=== PATIENT | male | born 1985 | race Caucasian/White ===

== ENCOUNTER 2024-07-12 14:46 | Observation (INO) | payer OTHER, SELFPAY ==
[2024-07-12] VITALS (9 sets, daily range): BP systolic 112–142; BP diastolic 73–98; PULSE 87–106; RESP 12–20; TEMP 36.4–37.8; O2SAT 94–97
--- NOTE | 2024-07-12 14:45 | DI.CT_ITS ---
Exam(s) CT ABDOMEN PELVIS W EXAM: CT ABDOMEN PELVIS W CLINICAL HISTORY: ?abscess. TECHNIQUE: Imaging Protocol: Axial computed tomography images with coronal and sagittal reformatted images were created and reviewed CONTRAST MATERIAL: Intravenous: Omnipaque-350 100cc Oral: None COMPARISON: No exams were available for comparison FINDINGS: VISUALIZED LUNG BASES: No nodules nor pleural effusions evident. ABDOMEN: There is no ascites. LIVER: Uppermost aspect of the right hepatic lobe is not included in the field of view. Apparently t his is not the area of clinical concern. There no discrete focal hepatic lesions. No dilated intrah epatic ducts. GALLBLADDER/BILIARY: No obvious gallbladder pathology. CBD is not dilated. PANCREAS: No evidence of pancreatic mass nor dilatation of the pancreatic duct. SPLEEN: There is mild splenomegaly. The cephalocaudal measurement of the spleen is 14.8 cm. There a re no splenic lesions. Splenic vein diameter is 12 mm which is slightly prominent. This vein is pat ent with no evidence of intraluminal thrombus. Portal vein confluence is also patent as is the main portal vein and intrahepatic portal veins. The superior mesenteric vein is also patent. ADRENALS: There are no significant adrenal masses. KIDNEYS:No cysts evident. No solid renal masses. No calculi nor hydronephrosis.. ABDOMINAL AORTA: Abdominal aorta is not enlarged. Retroaortic left renal vein is noted which is seen approximately 5 percent of the general population. This retroaortic left renal vein is not thrombos ed. LYMPH NODES:There is no retroperitoneal nor paraaortic adenopathy. ABDOMINAL WALL/GI: There is evidence of prior abdominal surgeries. Thinned anterior abdominal wall i n the midline noted most probably related to healed prior laparotomy. On the right side there is an anterior abdominal wall hernia located 10 cm lateral to the midline. This contains bowel loop. This is near an anastomosis level. There is no high-grade small bowel obstruction. On the left side there is inflammatory type skin thickening and subcutaneous streaking. Approximatel y 14 cm lateral left of center there is a fistulous tract from the skin through the abdominal wall to the wall of the sigmoid colon at this level. There is some smiled surrounding streaking. This may be related to a prior port site PELVIS: GI: Appendix appears unremarkable.There does not appear to be diverticular disease in the colon. LYMPH NODES: There is no intrapelvic nor inguinal adenopathy. REPRODUCTIVE: Prostate not enlarged. Seminal vesicles unremarkable. URINARY BLADDER: No calculi nor obvious masses evident OSSEOUS: No fractures and no significant osseous lesions. Sacroiliac joints appear unremarkable. No evidence of sacroiliitis. There is a benign-appearing scl erotic bone lesion in the right ischial tuberosity which is probably a benign bone island. IMPRESSION: 1. There is evidence of previous partial small bowel resection on the right side. Above this level t here is a right-sided abdominal wall hernia which contains non edematous appearing small bowel loops. However, there is mild prominence of small bowel loops on the right side measuring up to 3 cm. Col on is not collapsed. This may represent an element of incomplete small bowel obstruction on the righ t side due to this hernia. 2. On the left side there is an inflammatory process above the iliac crest level which extends from t he skin surface through the subcutaneous tissues an abdominal musculature with what appears to be a f istulous tract from the skin surface to the lateral wall of the sigmoid at this level. There is infl ammatory type stranding in the subcutaneous soft tissues and within the pelvis at this level. This m ay be related to a prior port site at this level. Alternatively inflammatory bowel disease with fist nash formation. There is no bowel obstruction at this level. There is no significant sigmoid diverti cular disease evident. There is abundant fecal material throughout the colon consistent with element of constipation. Given the above findings I suspect inflammatory bowel disease/Crohn's disease with prior surgeries. 3. The appendix appears unremarkable. Findings discussed by phone with ER physician 07/12/2024 5:50 p.m. RADIATION DOSE DELIVERED: 452.99mGy.cm Total DLP DATA REPOSITORY: All CT scans at this facility are submitted to the National Radiology Data Registry (NRDR) Dose Index Registry (DIR) with the [employer] (A[employer]). RADIATION OPTIMIZATION: All CT scans at this facility use at least one of these dose optimization te chniques: automated exposure control; mA and/or kV adjustment per patient size (includes targeted exa ms where dose is matched to clinical indication); or iterative reconstruction.
--- NOTE | 2024-07-12 15:05 | W.ED.GENAD ---
Discharge Plan Disposition Condition: Stable Discharge Details Chief Complaint: Abd Prob Clinical Impression: Left lower quadrant abdominal pain Primary Care Provider: None,None ED Provider: Shahab Howard Home Meds and New Rx's Prescriptions: No Action loperamide 2 MG capsule 2 mg PO PRN PRN mesalamine [Asacol] 400 MG tablet,delayed release (DR/EC) 400 mg PO TID acetaminophen-codeine 1 EACH tablet 1 ea PO Q4H PRN PRN (Reason: Pain) Qty: 30 0RF Rx Instructions: 1-2 po q 4 hrs prn pain HPI General Mode of arrival: ambulatory. Date/Time Provider Initiated Documentation: 07/12/24 14:58. Limitations to Documentation: no limitations. Information obtained by: patient. History of Present Illness 39 year old M presents to the emergency department with the chief complaint of left lower abdominal tenderness, described as moderate, Quality is described as sharp, and is localized to the abdomen. Patient reports no radiation. Patient started experiencing this day(s) (2) and it has been constant. No relieving factors improve symptom(s), No exacerbating factors reported . Patient notes fever/chills. Patient did receive the following treatments prior to arrival, none Related Data Home Medications ?Medication ?Instructions ?Recorded ?Confirmed acetaminophen 300 mg-codeine 30 mg 1 ea PO Q4H PRN PRN Pain ##30 09/09/13 tablet loperamide 2 mg capsule 2 mg PO PRN PRN 09/09/13 09/09/13 mesalamine 400 mg tablet,delayed 400 mg PO TID 09/09/13 09/09/13 release (Asacol) Previous Rx's ?Medication ?Instructions ?Recorded acetaminophen 300 mg-codeine 30 mg 1 ea PO Q4H PRN PRN Pain ##30 09/09/13 tablet Allergies Allergy/AdvReac Type Severity Reaction Status Date / Time No Known Allergies Allergy Unverified 07/12/24 14:58 General Stated Complaint: Abuse/Negl PADDY: 2 Review of Systems All systems reviewed & are unremarkable except as noted in HPI and below Constitutional Constitutional: Reports chills and Reports fever(s) Cardiovascular Cardiovascular: Denies chest pain and Denies dyspnea Respiratory Respiratory: Denies cough and Denies dyspnea Gastrointestinal Gastrointestinal: Reports abdominal pain and Denies vomiting Genitourinary Genitourinary: Denies dysuria Exam Const General: no acute distress Orientation: alert [facility] Head: normal to inspection Ears: external ears normal General nose exam: external nose normal Mouth: moist mucous membranes Eyes General: appearance normal, both eyes and all related structures Neck Neck: normal visual inspection Resp Effort & Inspection: normal respiratory effort and able to speak in complete sentences Cardio Rate: regular rate Neuro General: patient alert and patient oriented x3 Extrem General: normal to inspection Psych Mental Status: mental status grossly normal Course Vital Signs Vital signs: Vital Signs Temperature 37.8 C H 07/12/24 14:50 Pulse 105 H 07/12/24 14:50 Respiratory Rate 12 07/12/24 14:50 Blood Pressure 124/85 07/12/24 14:50 Pulse Oximetry 97 07/12/24 14:50 Temperature 37.8 C H 07/12/24 14:50 Temperature Source Temporal Artery Scan 07/12/24 14:50 Pulse 105 H 07/12/24 14:50 Respiratory Rate 12 07/12/24 14:50 Blood Pressure 124/85 07/12/24 14:50 Pulse Oximetry 97 07/12/24 14:50 Oxygen Delivery Method Room Air 07/12/24 14:50 Oxygen Flow Rate 0 07/12/24 14:50 Pain Level 8 07/12/24 14:50 Lab/Test Results Lab/Test Results: 07/12/24 14:59 Blood Blood Culture - Pending 07/12/24 14:59 Blood Blood Culture - Pending Medical Decision Making 39-year-old male with a history of Crohn's and prior abdominal surgeries related to this [facility] with 2 days of left lower abdominal pain and what he felt was a abscess of the lower abdominal wall. He also had fevers to 101. He denies any vomiting but has had some nausea. He is alert and oriented on arrival speaking clearly. He has multiple old surgical site areas of the abdomen and the area they think is infected is in the left lower quadrant where he feels like he has a hard cyst over a surgical site. There is 2 to 3 cm of mild erythema. [facility] Abdomen is soft but is tender in the left lower quadrant. Concern for intra-abdominal abscess, will obtain CBC, CMP, procalcitonin and CT abdomen pelvis to further evaluate. Patient stable, was difficult to get IV access so I placed an ultrasound-guided IV, patient advised the certified performance technologist that he had a reaction to CT contrast 10 years ago in [facility] where he got red and itchy all over. He is not able to provide any other details. He will be premedicated with IV Solu-Medrol as well as Benadryl. Patient will be signed out to oncoming provider pending CT results with disposition based on those results. Differential Diagnosis Differential Diagnosis: diverticulitis, intrabdominal abscess Lab Data Lab results reviewed: Yes I reviewed the patient's lab results. Quality:SDOH Health Related Social Needs: No Data to Display [facility] All Active Problems (Updated 07/12/24 @ 16:38 by Shahab Howard MD) Left lower quadrant abdominal pain (Acute) Social History Smoking/Tobacco Use Status: Current every day Smoking risk assessment performed?: Yes Drug use: Never
[2024-07-12 16:02] LABS: Abs Immature Grans 0.02 10^3/uL (0.0-0.06); Absolute Basophil Count 0.01 10^3/uL (0.0-0.2); Absolute Eosinophil Count 0.05 10^3/uL (0.0-0.7); Absolute Lymphocyte Count 0.44 10^3/uL (1.2-3.4); Absolute Monocyte Count 0.51 10^3/uL (0.1-0.8); Absolute Neutrophil Count 3.06 10^3/uL (1.2-6.7); Basophils % 0.2 %; Eosinophils % 1.2 %; HCT 37.5 % (40.0-50.0); HGB 12.2 g/dL (13.5-17.5); Immature Grans % 0.5 %; Lymphocytes % 10.8 %; MCH 26.8 pg (27.0-33.0); MCHC 32.5 % (32.0-36.0); MCV 82 fL (80-95); MPV 9.3 fL (8.0-11.0); Monocytes % 12.5 %; Neutrophils % 74.8 %; Platelet Count 201 10^3/uL (130-400); RBC 4.55 10^6/uL (4.36-5.78); RDW 14.1 % (11.8-14.1); RDW-SD 41.4 fL; WBC 4.09 10^3/uL (4.4-10.8)
[2024-07-12 16:04] LABS: ESR 19 mm/hr (0-15)
[2024-07-12] MEDS: Ketorolac 15 MG/ML VIAL IVP ×3 (16:13→23:38)
[2024-07-12] MEDS: Normal Saline 1,000 ML 1000 ML IV (16:13)
--- OUTSIDE RECORDS SUMMARY | 2024-07-12 16:18 | XMS_ITS | Data Portability ---
Author Organization [place] - [facility] Address [address] [place] [address] Assessment No assessment recorded. Plan of Treatment Reminders Order Date Submit Date Provider Last Modified By Organization Details Last Modified Time Details Appointments None recorded. Lab None recorded. Referral None recorded. Procedures None recorded. Surgeries None recorded. Imaging None recorded. Medication Orders Augmentin 875 mg-125 mg tablet 2023 [id number], [address], [place], [address], 15:30:29 Patient TargetsNo targets recorded. Patient Instructions Encounter Date Encounter Id Patient Instructions Last Modified By Organization Details Last Modified Time 03/31/2024 [id number] Unusual scenario , no clear entry point of infection, non petechial, bilateral, somewhat scattered and nodular and discrete, limited to sam area, pt looks nontoxic. Erythema nodosum could be a possibility, pt declines IM abx, rec course augmentin and go to ER if fevers or increased pain, pt states he is seeing his new physician for the first time tomorrow. [email or web address] Not available 03/31/2024 15:44:47 Reason for Referral None Reported. Medical Equipment None Reported. Allergies No known drug allergies Medications Name Sig Start Date Stop Date Status Note LastModified by Organization Details LastModified Time Augmentin 875 mg-125 mg tablet Take 1 tablet every 12 hours by oral route for 10 days. 024 active Not Available Not Available Not Avai lable dicyclomine 20 mg tablet Take 1 tablet twice a day by oral route. active Not Available Not Available No t Available gabapentin 300 mg capsule Take 1 capsule twice a day by oral route. active Not Available Not Available No t Available Suboxone active Not Available Not Avai lable Not Available Vitals Date Recorded Body height Body mass index (BMI) Body weight Body temperature Oxygen saturation Oxygen saturation in Arterial blood by Pulse oximetry Heart rate Respiratory rate Systolic blood pressure Diastolic blood pressure Provider Name and Address Organization Details Last Updated DateTime 4 187.96 cm 22.5 kg/m2 97168.6 6 g 97.3 [degF] 97 % 97 % 106 /min 20 /min 143 mm[Hg] 90 mm[Hg] Nava Wall [facility] 4 15:17:21 Social History None recorded. Functional Status None recorded. Mental Status None recorded. Family History Nothing Reported. Medical History No medical history recorded. Past Encounters Encounter ID Performer Location Encounter Start Date Encounter Closed Date Diagnosis/Indication Diagnosis SNOMED-CT Code Diagnosis ICD10 Code [id number] Saqib Hagan MD [address],[facility] [place] [address] 03/31/2024 15:05:55 03/31/2024 15:28:14 Cellulitis 936965550 L03.90 Health Concerns Section Related Observation LastModified by Organization Detai ls LastModified Time None Recorded Concern Status LastModified by Organization Details LastModified Time None Recorded Advance Directives Directive None Recorded Payers Encounter Date Sequence Insurance Name Policy Number Policy [place] Covered Member ID [place] Member ID Guarantor Name 03/31/2024 1 [facility] (MEDICAID) Avery Pulido [id number] Avery Pulido Notes Date Note Type Note Provider Name and Address Organization Details Recorded Time 03/31/2024 text/html HPI Notes: Pt has had rash on both legs for a few days, denies fever or chills, no injury, doesn't feel sick. MD [address], [place], [address], [facility]. 03/31/2024 15:45:18
--- OUTSIDE RECORDS SUMMARY | 2024-07-12 16:18 | XMS_ITS | Data Portability ---
Author Organization [place] [facility] [place] Address [address] [place] [address] Assessment Encounter Date Assessment Date Assessment LastModified by Organization Details LastModified Time 01/22/2022 01/22/2022 Telemedicine Information: This telmed (audio + visual) appointment provided a MAT prescription. Time Start: 1400; Time End:1415 Provider Location: home; Patient Location: office Telemedicine Consent Given (verbal): Jack LEWIS is a 36 y/o male with a history of OUD who presents today for their weekly MAT visit. Current prescription is: buprenorphine/nalo xone 16/4mg films BIO/PSYCH/SOCIAL HX: OUD: - MAT TX W/ BUP OR METHADONE X 16 YEARS WITH PERIODIC RELAPSE/ OPIOID USE - REPORTS MILD W/D SX STARTING AROUND 4PM ON CURRENT DOSE OF 16/4mg NICOTINE USE: - 1/2-1 PPD PSYCH: - D:X ADHD, RX: [facility]: - CROHNS DISEASE: STABLE, NO CURRENT RX OR GI SPECIALIST - PCP: DR CHRISTIANSEN - BLOODWORK: PER PT COMPLETED AT DOC 10/31 SOCIAL: - HOUSING: CURRENTLY STAYING W/ DAD IN [place] (WAS AT [facility]). 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 - TRANSPORTATION: RELIES ON [facility] - LEGAL: CURRENTLY ON [place]- PSYCHO- SOCIAL/ LEELEE UPDATE: - DENIES ILLICIT USE OVER THE LAST WEEK. - WILL INCREASE DOSE TO 18/4.5MG PA SHOULD BE COMPLETE - PT APPEARS STRESSED AT TODAY'S VISIT, PT REPORTS THIS IS B/C HE LOST HIS SPOT AT [employer] D/T NOT BEING ABLE TO PAY RENT. UN SURE IF THERE IS MORE TO THE STORY OR NOT, BUT PT IS CURRENTLY STAYING W/ HIS DAD IN [facility]. Lab Results Last UDS result (qualitative screen): 01/08/22POS buprenorphine and NO illicit drugs Last confirmatory test result (LCMS/quantitative ): N/A due to negative UDS Last buprenorphine confirmation test result: 01/08/22 Bup: 76.9 ng/ml & Norbup: 102.9 ng/ml ASSESSMENT: The patient's current phase of OUD treatment is : Stabilization phase. Interpretation of last buprenorphine confirmation test result : N/A (new to care) Medication dose : Considering dose adjustment, pt will remain at current dose at this time PLAN: OUD : Increase buprenorphine/nalo xone 18/4.5mg films daily. Continue weekly visits and UDS. 7d Rx provided today. Treatment plan review or change includes continue current level of care. Lab Orders : Confirmatory testing for illicit substances or absence of prescribed buprenorphine LFT will be repeated per our clinical protocol. Urine drug testing is ordered today with medical necessity as below. UNEXPECTED results on UDS may impact this patient's treatment plan. The following tests require confirmation via LCMS: Y POS for AMPHETAMINE Y POS for BENZODIAZEPINES Y POS for COCAINE Y POS for METHADONE Y POS for OPIATES W/FENTANYL Y POS for OXYCODONE NO POS FOR CANNAINOIDS. ADMITTED USE Additional lab(s) requested - if indicated, please order the following: Please repeat bup/NB on today's sample Prescription monitoring program is reviewed. If reviewed, I have identified agents prescribed to the patient in addition to any issued by our program; the patient is counseled regarding any risk of combining sedating agents. te for this level of care. [email or web address] Not available 01/22/2022 11:45:56 03/17/2024 03/17/2024 Telemedicine Information: This telmed (audio + visual) appointment provided a MAT prescription. Time Start: 145; Time End: 201 Provider Location: home; Patient Location: office Telemedicine Consent Given (verbal): Y Assessment/Plan This patient with a history of OUD presents today for Re-Initial visit. They are seeking treatment with Buprenorphine films/tabs The patient's current phase of treatment is induction phase. SUMMARY OF CURRENT SUBSTANCE USE: Patient released from corrections yesterday, was incarcerated since February 2022 Per patient, Sedrick Worthy was psych med provider at [facility], Rx methylphenidate appears on VPMS Patient presents with abnormal movements, fidgeting with his clothes, itching, and rearranging often He is pleasant and cooperative, engaged in visit Patient preference for suboxone vs subutex Paperwork from [facility] state maintenance dose of subutex was 24mg daily When has full dose of 24mg, he does well Was only sent Rx for 8mg dose this morning and he is starting to feel some withdrawal Patient is very pleased with transitional housing and states he's treated very well and the lady is very helpful MEDICAL : -- Current medical concerns: ADHD, OCD, depression, Crohn's (surgical history and previous colostomy bag) - Rx gabapentin, methylphenidate, dicyclomine -- PCP Name: dixie pt given information for [facility] for primary and psych care PSYCHO SOCIAL : -- Housing Stability/Safety: transitional housing through [facility] -- Family: no children -- Employment: unemployed -- Legal: furlough -- Counseling: none The patient does meet diagnostic criteria for opioid use disorder. MAT Medication Rx : Suboxone 24mg films daily Add'l Meds Prescribed : NONE MAT Rx Quantity : 7d Rx provided today. Visit Frequency : weekly visits and UDS. Initial lab studies ordered today include urine drug screen with confirmation (if requested/required ), HCG (female), CBC with differential, comprehensive metabolic panel, HAV, HBV, HCV, and HIV. Discussed ordered labs and rationale behind required labwork Education and counseling provided at today's Comprehensive Addiction Initial Assessment included (as appropriate for this patient): -- Education re: risks and benefits of MAT options (buprenorphine and naltrexone) as appropriate for this patient. -- If treating with buprenorphine, proper sublingual dosing technique reviewed: No smoking for 20 - 30 min before dose. Sip water prior to dosing. During buprenorphine dissolve, hold all saliva in mouth only until medication is fully dissolved. Patient may then swallow saliva or spit it out. Rinse mouth with water afterwards. Do not brush teeth for a full hour after dosing. --If treating with buprenorphine, discussed in-office induction vs home induction, depending on current drug of choice and quantity of use. --If treating with naltrexone, discussed length of abstinence before taking first dose. -- Reviewed program policies, visit frequency, and expectations regarding behavior. -- Reviewed and defined medication misuse and diversion, discussed that this behavior is against [facility] policy, and can result in discharge from the program. -- Discussed rationale and recommendation of psychotherapy to support recovery. Prescription monitoring program is reviewed. If applicable, this provider has identified agents prescribed to the patient in addition to any issued by our program. The patient has been counseled regarding any risk of combining sedating agents. [email or web address] Not available 03/17/2024 14:02:40 03/24/2024 03/24/2024 Telemedicine Information: This telmed (audio + visual) appointment provided a MAT prescription. Time Start: 1:35p; Time End:1:39p Provider Location: office; Patient Location: office ([facility]) Telemedicine Consent Given (verbal): Y This patient with a history of OUD presents today for their weekly MAT visit Current prescription is: buprenorphine/nalo xone 24mg films Patient denies any S/E, cravings, or withdrawal sx at current dose Update Since Last Visit : (narrative note) Patient Denies all illicit drug use since last visit Seen today in cross-coverage for [facility] In process of settling in after release from incarceration. Living in transitional housing and looking for a job, has interview later today for a [employer] position Upcoming appt 04/01/24 to establish care at [facility] for PCP OUD : feeling stable on current dose LAB RESULTS Last UDS result (qualitative screen): POS buprenorphine and NO illicit drugs Last confirmatory test result (LCMS/quantitative ): N/A due to negative UDS Last Bup confirmation was performed on N/A with the result: Bup: N/A ng/ml & Norbup: N/A ng/ml Last LFT result: not done ASSESSMENT The patient's current phase of OUD treatment is: Stabilization phase. Interpretation of last buprenorphine confirmation test result: N/A (new to care) Medication dose: No report of severe or persistent cravings/withdrawa l symptoms. Pt will remain at current dose PLAN (narrative, if applicable) Rx : Continue buprenorphine/nalo xone 24mg films daily Rx Quantity 7d Rx provided today. VISIT FREQUENCY Continue weekly visits and UDS. Treatment plan review or change includes continue current level of care LFTS will be repeated per our clinical protocol. Prescription monitoring program is reviewed. If applicable, I have identified agents prescribed to the patient in addition to any issued by our program. The patient has been counseled regarding any risk of combining sedating agents. [email or web address] Not available 03/24/2024 13:42:38 03/31/2024 03/31/2024 Telemedicine Information: This telmed (audio + visual) appointment provided a MAT prescription. Time Start: 2:29; Time End:234 Provider Location: office; Patient Location: office ([facility]) Telemedicine Consent Given (verbal): Y This patient with a history of OUD presents today for their weekly MAT visit Current prescription is: buprenorphine/nalo xone 24mg films Patient denies any S/E, cravings, or withdrawal sx at current dose Update Since Last Visit : (narrative note) Patient Denies all illicit drug use since last visit Seen today in [facility] for [facility] In process of settling in after release from incarceration. Living in transitional housing through [facility] and looking for a job, says it didn't work out with the [employer] job he applied for. Upcoming appt 04/01/24 to establish care at [facility] for PCP OUD : feeling stable on current dose LAB RESULTS Last UDS result (qualitative screen): POS buprenorphine and NO illicit drugs Last confirmatory test result (LCMS/quantitative ): N/A due to negative UDS Last Bup confirmation was performed on N/A with the result: Bup: N/A ng/ml & Norbup: N/A ng/ml Last LFT result: not done ASSESSMENT The patient's current phase of OUD treatment is: Stabilization phase. Interpretation of last buprenorphine confirmation test result: N/A (new to care) Medication dose: No report of severe or persistent cravings/withdrawa l symptoms. Pt will remain at current dose PLAN (narrative, if applicable) Rx : Continue buprenorphine/nalo xone 24mg films daily Rx Quantity 7d Rx provided today. VISIT FREQUENCY Continue weekly visits and UDS. Treatment plan review or change includes continue current level of care LFTS will be repeated per our clinical protocol. Prescription monitoring program is reviewed. If applicable, I have identified agents prescribed to the patient in addition to any issued by our program. The patient has been counseled regarding any risk of combining sedating agents. [email or web address] Not available 03/31/2024 14:36:25 04/07/2024 04/07/2024 Telemedicine Information: This telmed (audio + visual) appointment provided a MAT prescription. Time Start: 3:15; Time End:320 Provider Location: office; Patient Location: office ([facility]) Telemedicine Consent Given (verbal): Y This patient with a history of OUD presents today for their weekly MAT visit Current prescription is: buprenorphine/nalo xone 24mg films Patient denies any S/E, cravings, or withdrawal sx at current dose Update Since Last Visit : (narrative note) Patient Denies all illicit drug use since last visit Seen today in cross-coverage for [facility] In process of settling in after release from incarceration. Living in transitional housing through [facility] [employer] and looking for a job, says he continues to apply but hasn't found anything yet. First UDS did not read a temp. Second one did. OUD : feeling stable on current dose LAB RESULTS Last UDS result (qualitative screen): POS buprenorphine and NO illicit drugs Last confirmatory test result (LCMS/quantitative ): N/A due to negative UDS Last Bup confirmation was performed on N/A with the result: Bup: 113 ng/ml & Norbup: 294 ng/ml (03/31/2024) Last LFT result: not done ASSESSMENT The patient's current phase of OUD treatment is: Stabilization phase. Interpretation of last buprenorphine confirmation test result: No concern Medication dose: No report of severe or persistent cravings/withdrawa l symptoms. Pt will remain at current dose PLAN (narrative, if applicable) Rx : Continue buprenorphine/nalo xone 24mg films daily Rx Quantity 7d Rx provided today. VISIT FREQUENCY Continue weekly visits and UDS. Treatment plan review or change includes continue current level of care LFTS will be repeated per our clinical protocol. Prescription monitoring program is reviewed. If applicable, I have identified agents prescribed to the patient in addition to any issued by our program. The patient has been counseled regarding any risk of combining sedating agents. Not available 04/07/2024 15:29:01 Plan of Treatment Reminders Order Date Submit Date Provider Last Modified By Organization Details Last Modified Time Details Appointments None recorded. Lab drug screen, urine 2021 022 [facility], [address] [place], [id number], 12:35:18 drug screen, urine 2023 024 [facility], [address] [place], [id number], 4 12:51:27 additional order codes 2023 024 [facility], [address] [place], [id number], 4 14:01:00 additional order codes 2023 024 [facility], [address] [place], [address], 4 14:01:01 additional order codes 2023 024 [facility], [address] [place], [address], 4 14:01:06 additional order codes 2023 024 [facility], [address] [place], [address], 4 14:00:57 additional order codes 2023 024 [facility], [address] [place], [address], 4 14:01:04 additional order codes 2023 024 [facility], [address] [place], [address], 4 14:01:03 drug screen, urine 2023 024 [facility], [address] [place], [address], 4 12:51:08 additional order codes 2023 024 [facility], [address] [place], [address], 4 13:46:02 additional order codes 2023 024 [facility], [address] [place], [address], 4 13:46:08 [facility] codes [facility] [address] [place], [address], 4 13:46:06 additional order codes 2023 024 [facility] [address] [place], [address], 4 13:46:05 additional order codes 2023 024 [facility] [address] [place], [address], 4 13:46:10 additional order codes 2023 024 [facility] [address] [place], [address], 4 13:45:59 additional order codes 2023 [facility] [address] [place], [address], 4 13:46:03 buprenorphi ne, quantitativ e, urine 2023 024 [facility] [address] [place], [address], 4 05:30:46 drug screen, urine 2023 024 [facility] [address] [place], [address], 4 14:41:20 cannabinoid s, QL, screen, urine 2023 024 [facility], [address] [place], [address], 4 14:41:12 ethanol, QL, screen, urine 2023 024 [facility], [address] [place], [address], 4 14:40:57 additional order codes 2023 024 [facility], [address] [place], [address], 4 14:35:11 additional order codes 2023 024 [facility], [address] [place], [address], 4 14:35:05 additional order codes 2023 024 [facility], [address] [place], [address], 4 14:35:09 additional order codes 2023 024 [facility], [address] [place], [address], 4 14:35:21 additional order codes 2023 024 [facility], [address] [place], [address], 4 14:35:14 additional order codes 2023 024 [facility], [address] [place], [address], 4 14:35:18 additional order codes 2023 024 [facility], [address] [place], [address], 4 14:35:16 buprenorphi ne, quantitativ e, urine 2023 024 [facility], [address] [place], [address], 4 10:42:22 drug screen, urine 2023 024 [facility] [address] [place], [address], 4 13:49:55 cannabinoid s, QL, screen, urine 2023 024 [facility] [address] [place], [address], 4 13:50:43 ethanol, QL, screen, urine 2023 024 [facility] [address] [place], [address], 4 13:49:52 additional order codes 2023 024 [facility], [address] [place], [address], 4 15:28:27 additional order codes 2023 024 [facility], [address] [place], [address], 4 15:28:31 additional order codes 2023 024 [facility], [address] [place], [address], 4 15:28:38 additional order codes 2023 024 [facility], [address] [place], [address], 4 15:28:34 additional order codes 2023 024 [facility], [address] [place], [address], 4 15:28:26 additional order codes 2023 024 [facility], [address] [place], [address], 4 15:28:36 additional order codes 2023 024 [facility], [address] [place], [address], 4 15:28:32 buprenorphi ne, quantitativ e, urine 2023 [facility], [address] [place], [address], 4 09:29:56 Referral None recorded. Procedures None recorded. Surgeries None recorded. Imaging None recorded. Medication Orders Suboxone 8 mg-2 mg sublingual film 2021 022 [id number], [address] [facility], [facility] [address], [place], [id number], 4 19:24:09 buprenorphi ne 2 mg-naloxone 0.5 mg sublingual film 2021 022 [id number], [address] [facility], [facility] [address], [place], [id number], 4 19:24:06 Suboxone 12 mg-3 mg sublingual film 2023 024 [facility], [address] [place], [address], 4 14:01:38 Suboxone 12 mg-3 mg sublingual film 2023 024 [facility], [address] [place], [address], 4 13:46:10 Suboxone 12 mg-3 mg sublingual film 2023 024 [facility], [address] [place], [address], 4 14:35:38 Suboxone 12 mg-3 mg sublingual film 2023 024 [facility], [address] [place], [address], 4 15:28:47 Patient TargetsNo targets recorded. Patient Instructions Encounter Date Encounter Id Patient Instructions Last Modified By Organization Details Last Modified Time 01/22/2022 [id number] As part of your individualized treatment plan and program requirement, you will need to bring your correct prescription bottle and all used and unused medication and counseling verification to each appointment; > Agree to participate in counseling and bring counseling verification to each appointment; > Agree to present for random visits; > Agree to not falsify your urine specimens. [email or web address] Not available 01/21/2022 19:03:46 Education provid ed at today's visit included: Review of patient's individualized treatment plan; Review of program policies: RX, visit, counseling and DATA compliance; Review medication administration technique; Discussion proper care of medication/safety/ lock box; Counseling re: trigger avoidance, relapse prevention and the importance of developing a sober network; Counseling re safe sex and control; Review risk of BZD and BUP, as well as ETOH; Counseling re: Discovery & Drop out prevention in early recovery. [email or web address] Not available 01/21/2022 19:03:46 Reason for Referral None Reported. Results Created Date Observation Date Name Description Value Unit Range Abnormal Flag Note LastModifiedBy Organization Detail LastModifiedTime 12/25/19 22 12/25/2021 BUPRE NORPH INE PT SCREE HELEN amphetamines Negati ve NG/mL 1,000 Franchesca chavira by JOHNATHAN COLINDRES [place] Not Available [facility] [address] [place], [address], 12/26/2021 11:47:53 02/14/20 22 12/25/2021 BUPRE NORPH INE PT SCREE HELEN benzodiazapi patrica Negati ve NG/mL 200 Not Available [facility] [place], [address], 12/26/2021 11:47:53 12/25/19 22 12/25/2021 BUPRE NORPH INE PT SCREE HELEN buprenorphin e Positi ve NG/mL 5 Not Available [facility] [place], [address], 12/26/2021 11:47:53 12/25/19 22 12/25/2021 BUPRE NORPH INE PT SCREE HELEN cocaine metabolite Negati ve NG/mL 150 Not Available [facility] [place], [address], 12/26/2021 11:47:53 12/25/19 22 12/25/2021 BUPRE NORPH INE PT SCREE HELEN opiates Negati ve NG/mL 300 Not Available [facility] [place], [address], 12/26/2021 11:47:53 12/25/19 22 12/25/2021 BUPRE NORPH INE PT SCREE HELEN oxycodone Negati ve NG/mL 300 Not Available [facility], [address], 12/26/2021 11:47:53 12/25/19 22 12/25/2021 BUPRE NORPH INE PT SCREE HELEN fentanyl Negati ve NG/mL 2 Not Available [facility] [place], [address], 12/26/2021 11:47:53 12/25/19 22 12/25/2021 BUPRE NORPH INE PT SCREE HELEN ethyl alcohol Negati ve mg/dL 10 Not Available [facility] [place], [address], 12/26/2021 11:47:53 12/25/19 22 12/25/2021 BUPRE NORPH INE PT SCREE HELEN methadone metabolite Negati ve NG/mL 300 Not Available [place] [address] [address], [address], 12/26/2021 11:47:53 12/25/19 22 12/25/2021 BUPRE NORPH INE PT SCREE HELEN cannabinoids (THC) Positi ve NG/mL 50 abnormal Not Available [place] [address] [place], [address], 12/26/2021 11:47:53 12/25/19 22 12/25/2021 [facility]RE NORPH IN[facility] PT SCREE HELEN urine creatinine 126.9 mg/dL >20 Not Available [place] [address] [place], [address], 12/26/2021 11:47:53 12/25/19 22 12/25/2021 BUPRE NORPH INE PT SCREE HELEN urine pH 5.50 4.5-9. 0 Not Available [place] [address] [place], [address], 12/26/2021 11:47:53 12/25/19 22 12/25/2021 BUPRE NORPH INE PT SCREE HELEN specific gravity 1.022 1.003- 1.035 Not Available [place] [address] [place], [address], 12/26/2021 11:47:53 01/01/20 22 01/01/2022 BUPRE NORPH INE PT SCREE HELEN amphetamines Negati ve NG/mL 1,000 Franchesca chavira by JOHNATHAN COLINDRES ND Not Available [place] [address] [place], [address], 01/03/2022 14:28:39 01/01/20 22 01/01/2022 [facility]RE NORPH INE PT SCREE HELEN benzodiazapi patrica Negati ve NG/mL 200 Not Available [facility], [address], 01/03/2022 14:28:39 01/01/20 22 01/01/2022 BUPRE NORPH INE PT SCREE HELEN buprenorphin e Positi ve NG/mL 5 Not Available [facility], [address], 01/03/2022 14:28:39 01/01/20 22 01/01/2022 BUPRE NORPH INE PT SCREE HELEN cocaine metabolite Negati ve NG/mL 150 Not Available [facility], [address], 01/03/2022 14:28:39 01/01/20 22 01/01/2022 BUPRE NORPH INE PT SCREE HELEN opiates Negati ve NG/mL 300 Not Available [facility], [address], 01/03/2022 14:28:39 01/01/20 22 01/01/2022 BUPRE NORPH INE PT SCREE HELEN oxycodone Negati ve NG/mL 300 Not Available [facility], [address], 01/03/2022 14:28:39 01/01/20 22 01/01/2022 BUPRE NORPH INE PT SCREE HELEN fentanyl Negati ve NG/mL 2 Not Available [facility], [address], 01/03/2022 14:28:39 01/01/20 22 01/01/2022 BUPRE NORPH INE PT SCREE HELEN ethyl alcohol Negati ve mg/dL 10 Not Available [facility], [address], 01/03/2022 14:28:39 01/01/20 22 01/01/2022 BUPRE NORPH INE PT SCREE HELEN methadone metabolite Negati ve NG/mL 300 Not Available [facility] [address] [place], [address], 01/03/2022 14:28:39 01/01/20 22 01/01/2022 BUPRE NORPH INE PT SCREE HELEN cannabinoids (THC) Negati ve NG/mL 50 Not Available [facility] [address] [place] [address] [place], [address], 01/03/2022 14:28:39 01/01/20 22 01/01/2022 BUPRE NORPH INE PT SCREE HELEN urine creatinine 144.2 mg/dL >20 Not Available [place] [address] [place], [address], 01/03/2022 14:28:39 01/01/20 22 01/01/2022 BUPRE NORPH INE PT SCREE HELEN urine pH 6.50 4.5-9. 0 Not Available [place] [address] [place], [address], 01/03/2022 14:28:39 01/01/20 22 01/01/2022 BUPRE NORPH INE PT SCREE HELEN specific gravity 1.023 1.003- 1.035 Not Available [place] [address] [place], [address], 01/03/2022 14:28:39 01/01/20 22 01/01/2022 LOW LVL CUTOF F BUPRE NORPH INE PANEL , QN, U buprenorphin e 356.1 NG/mL 10 Elect heike john d by JOHNATHAN COLINDRES ND Not Available [place] [address] [place], [address], 01/05/2022 03:04:30 01/01/20 22 01/01/2022 LOW LVL CUTOF F BUPRE NORPH INE PANEL , QN, U norbuprenorp ang 477.9 NG/mL 10 Not Available [place] [address] [place], [address], 01/05/2022 03:04:30 01/01/20 22 01/01/2022 LOW LVL CUTOF F BUPRE NORPH INE PANEL , QN, U legend Abbrev iation s LOW - Detec aydee but unqua ntifi able OLR - Outsi de of linea r range ATR - Addit ional Testi ng Requi red Not Available [facility] [place], [address], 01/05/2022 03:04:30 01/01/20 22 01/01/2022 LOW LVL CUTOF F BUPRE NORPH INE PANEL , QN, U billing only (g0480) Billin g Only Not Available [facility] [place], [address], 01/05/2022 03:04:30 01/08/20 22 01/08/2022 BUPRE NORPH INE PT SCREE HELEN amphetamines Negati ve NG/mL 1,000 Elect heike john d by JOHNATHAN COLINDRES ND Not Available [place] [address] [place], [address], 01/10/2022 14:50:41 01/08/20 22 01/08/2022 BUPRE NORPH INE PT SCREE HELEN benzodiazapi patrica Negati ve NG/mL 200 Not Available [facility], [address], 01/10/2022 14:50:41 01/08/20 22 01/08/2022 BUPRE NORPH INE PT SCREE HELEN buprenorphin e Positi ve NG/mL 5 Not Available [facility], [address], 01/10/2022 14:50:41 01/08/20 22 01/08/2022 BUPRE NORPH INE PT SCREE HELEN cocaine metabolite Negati ve NG/mL 150 Not Available [facility], [address], 01/10/2022 14:50:41 01/08/20 22 01/08/2022 BUPRE NORPH INE PT SCREE HELEN opiates Negati ve NG/mL 300 Not Available [facility], [address], 01/10/2022 14:50:41 01/08/20 22 01/08/2022 BUPRE NORPH INE PT SCREE HELEN oxycodone Negati ve NG/mL 300 Not Available [facility], [address], 01/10/2022 14:50:41 01/08/20 22 01/08/2022 BUPRE NORPH INE PT SCREE HELEN fentanyl Negati ve NG/mL 2 Not Available [facility], [address], 01/10/2022 14:50:41 01/08/20 22 01/08/2022 BUPRE NORPH INE PT SCREE HELEN ethyl alcohol Negati ve mg/dL 10 Not Available [facility], [address], 01/10/2022 14:50:41 01/08/20 22 01/08/2022 BUPRE NORPH INE PT SCREE HELEN methadone metabolite Negati ve NG/mL 300 Not Available [facility], [address], 01/10/2022 14:50:41 01/08/20 22 01/08/2022 BUPRE NORPH INE PT SCREE HELEN cannabinoids (THC) Negati ve NG/mL 50 Not Available [facility], [address], 01/10/2022 14:50:41 01/08/20 22 01/08/2022 BUPRE NORPH INE PT SCREE HELEN urine creatinine 67.2 mg/dL >20 Not Available [place] [address] [place], [address], 01/10/2022 14:50:41 01/08/20 22 01/08/2022 BUPRE NORPH INE PT SCREE HELEN urine pH 7.40 4.5-9. 0 Not Available [place] [address] [place], [address], 01/10/2022 14:50:41 01/08/20 22 01/08/2022 BUPRE NORPH INE PT SCREE HELEN specific gravity 1.014 1.003- 1.035 Not Available [place] [address] [place], [address], 01/10/2022 14:50:41 01/08/20 22 01/08/2022 PRESC RIBED DRUG CONFI RMATI ON BUPRE NORPH INE 1, QN, U buprenorphin e 76.9 NG/mL 10 Elect heike john d by JOHNATHAN COLINDRES ND Not Available [place] [address] [place], [address], 01/11/2022 13:46:44 01/08/20 22 01/08/2022 PRESC RIBED DRUG CONFI RMATI ON BUPRE NORPH INE 1, QN, U norbuprenorp ang 102.9 NG/mL 10 Not Available [place] [address] [place], [address], 01/11/2022 13:46:44 01/08/20 22 01/08/2022 PRESC RIBED DRUG CONFI RMATI ON BUPRE NORPH INE 1, QN, U legend Abbrev iation s LOW - Detec aydee but unqua ntifi able OLR - Outsi de of linea r range ATR - Addit ional Testi ng Requi red Not Available [place] [address] [place], [address], 01/11/2022 13:46:44 01/08/20 01/08/2022 PRESC RIBED DRUG CONFI RMATI ON BUPRE NORPH INE 1, QN, U billing only ([id number]) Billin g Only Not Available [facility], [address], 01/11/2022 13:46:44 01/23/20 22 01/22/2022 BUPRE NORPH INE PT SCREE HELEN amphetamines Negati ve NG/mL 1,000 Elect heike john d by JOHNATHAN COLINDRES ND Not Available [place] [address] [place], [address], 01/23/2022 12:35:18 01/23/20 22 01/22/2022 BUPRE NORPH INE PT SCREE HELEN benzodiazapi patrica Negati ve NG/mL 200 Not Available [facility] [place], [address], 01/23/2022 12:35:18 01/23/20 22 01/22/2022 BUPRE NORPH INE PT SCREE HELEN buprenorphin e Positi ve NG/mL 5 Not Available [facility], [address], 01/23/2022 12:35:18 01/23/20 22 01/22/2022 BUPRE NORPH INE PT SCREE HELEN cocaine metabolite Positi ve NG/mL 150 abnormal Not Available [facility] [place], [address], 01/23/2022 12:35:18 01/23/20 22 01/22/2022 BUPRE NORPH INE PT SCREE HELEN opiates Negati ve NG/mL 300 Not Available [facility], [address], 01/23/2022 12:35:18 01/23/20 22 01/22/2022 BUPRE NORPH INE PT SCREE HELEN oxycodone Negati ve NG/mL 300 Not Available [facility], [address], 01/23/2022 12:35:18 01/23/20 22 01/22/2022 BUPRE NORPH INE PT SCREE HELEN fentanyl Negati ve NG/mL 2 Not Available [facility], [address], 01/23/2022 12:35:18 01/23/20 22 01/22/2022 BUPRE NORPH INE PT SCREE HELEN ethyl alcohol Negati ve mg/dL 10 Not Available [facility], [address], 01/23/2022 12:35:18 01/23/20 22 01/22/2022 BUPRE NORPH INE PT SCREE HELEN methadone metabolite Negati ve NG/mL 300 Not Available [facility], [address], 01/23/2022 12:35:18 01/23/20 22 01/22/2022 BUPRE NORPH INE PT SCREE HELEN cannabinoids (THC) Negati ve NG/mL 50 Not Available [facility], [address], 01/23/2022 12:35:18 01/23/20 22 01/22/2022 BUPRE NORPH INE PT SCREE HELEN urine creatinine 233.8 mg/dL >20 Not Available [place] [address] [place], [address], 01/23/2022 12:35:18 01/23/20 22 01/22/2022 BUPRE NORPH INE PT SCREE HELEN urine pH 7.70 4.5-9. 0 Not Available [place] [address] [place], [address], 01/23/2022 12:35:18 01/23/20 22 01/22/2022 BUPRE NORPH INE PT SCREE HELEN specific gravity 1.015 1.003- 1.035 Not Available [place] [address] [place], [address], 01/23/2022 12:35:18 01/23/20 22 01/22/2022 COCAI NE, QN, U benzoylecgon ine 294.5 NG/mL 100 high Elect heike john d by JOHNATHAN COLINDRES ND Not Available [place] [address] [place], [address], 01/26/2022 12:42:40 01/23/20 22 01/22/2022 COCAI NE, QN, U legend Abbrev iation s OLR - Outsi de of linea r range Not Available [place] [address] [place], [address], 01/26/2022 12:42:40 01/23/20 22 01/22/2022 COCAI NE, QN, U billing only ([id number]) Billin g Only Not Available [facility] [address] [place], [address], 01/26/2022 12:42:40 03/17/20 24 03/18/2024 INITI AL PT UDS, QL, U cocaine metabolite NEG NG/mL <300 normal Not Available [facility] [address] [place], [address], 03/18/2024 12:51:27 03/17/20 24 03/18/2024 INITI AL PT UDS, QL, U amphetamines NEG NG/mL <500 normal Not Available [facility] [address] [place], [address], 03/18/2024 12:51:27 03/17/20 24 03/18/2024 INITI AL PT UDS, QL, U benzodiazepi patrica NEG NG/mL <200 normal Not Available [facility] [address] [place], [address], 03/18/2024 12:51:27 03/17/20 24 03/18/2024 INITI AL PT UDS, QL, U buprenorphin e POS NG/mL <5 normal Not Available [facility] [address] [place], [address], 03/18/2024 12:51:27 03/17/20 24 03/18/2024 INITI AL PT UDS, QL, U fentanyl NEG NG/mL <10 normal Not Available [facility] [address] [place], [address], 03/18/2024 12:51:27 03/17/20 24 03/18/2024 INITI AL PT UDS, QL, U methadone NEG NG/mL <300 normal Not Available [facility] [address] [place], [address], 03/18/2024 12:51:27 03/17/20 24 03/18/2024 INITI AL PT UDS, QL, U opiates NEG NG/mL <300 normal Not Available [facility] [address] [place], [address], 03/18/2024 12:51:27 03/17/20 24 03/18/2024 INITI AL PT UDS, QL, U oxycodone NEG NG/mL <300 normal Not Available [facility] [address] [place], [address], 03/18/2024 12:51:27 03/17/20 24 03/18/2024 INITI AL PT UDS, QL, U urine pH 7.9 4.5 - 9.0 Not Available [facility] [address] [place], [address], 03/18/2024 12:51:27 03/17/20 24 03/18/2024 INITI AL PT UDS, QL, U urine specific gravity 1.013 1.003 - 1.035 Not Available [facility] [address] [place], [address], 03/18/2024 12:51:27 03/17/20 24 03/18/2024 INITI AL PT UDS, QL, U urine creatinine 133 mg/dL 20 - 320 Not Available [facility] [address] [place], [address], 03/18/2024 12:51:27 03/24/20 24 03/25/2024 BUPRE NORPH INE PT UDS, QL, U cocaine metabolite NEG NG/mL <300 normal Not Available [facility] 12 [place], [address], 03/25/2024 12:51:08 03/24/20 24 03/25/2024 BUPRE NORPH INE PT UDS, QL, U amphetamines NEG NG/mL <500 normal Not Available [facility] [address] [place], [address], 03/25/2024 12:51:08 03/24/20 24 03/25/2024 BUPRE NORPH INE PT UDS, QL, U benzodiazepi patrica NEG NG/mL <200 normal Not Available [facility] [address] [place], [address], 03/25/2024 12:51:08 03/24/20 24 03/25/2024 BUPRE NORPH INE PT UDS, QL, U buprenorphin e POS NG/mL <5 normal Not Available [facility] [address] [place], [address], 03/25/2024 12:51:08 03/24/20 24 03/25/2024 BUPRE NORPH INE PT UDS, QL, U fentanyl NEG NG/mL <10 normal Not Available [facility] [address] [place], [address], 03/25/2024 12:51:08 03/24/20 24 03/25/2024 BUPRE NORPH INE PT UDS, QL, U methadone NEG NG/mL <300 normal Not Available [facility] [address] [place], [address], 03/25/2024 12:51:08 03/24/20 24 03/25/2024 BUPRE NORPH INE PT UDS, QL, U opiates NEG NG/mL <300 normal Not Available [facility] 12 [place], [address], 03/25/2024 12:51:08 03/24/20 24 03/25/2024 BUPRE NORPH INE PT UDS, QL, U oxycodone NEG NG/mL <300 normal Not Available [facility] [address] [place], [address], 03/25/2024 12:51:08 03/24/20 24 03/25/2024 BUPRE NORPH INE PT UDS, QL, U urine pH 6.5 4.5 - 9.0 Not Available [facility] [address] [place], [address], 03/25/2024 12:51:08 03/24/20 24 03/25/2024 BUPRE NORPH INE PT UDS, QL, U urine specific gravity 1.018 1.003 - 1.035 Not Available [facility] [address] [place], [address], 03/25/2024 12:51:08 03/24/20 24 03/25/2024 BUPRE NORPH INE PT UDS, QL, U urine creatinine 92 mg/dL 20 - 320 Not Available [facility] [address] [place], [address], 03/25/2024 12:51:08 03/24/20 24 2024 BUPRE NORPH INE, QN, U normalized buprenorphin e 357.2 NG/mL Not Available [facility] [address] [place], [address], 2024 05:30:46 03/24/20 24 2024 BUPRE NORPH INE, QN, U normalized norbuprenorp ang 1039.2 NG/mL Not Available [facility] [address] [place], [address], 2024 05:30:46 03/24/20 24 2024 BUPRE NORPH INE, QN, U buprenorphin e 327.5 NG/mL <10.0 normal Not Available [facility] 12 [place], [address], 2024 05:30:46 03/24/20 24 2024 BUPRE NORPH INE, QN, U norbuprenorp ang 952.9 NG/mL <20.0 normal Not Available [facility] [address] [place], [address], 2024 05:30:46 03/31/20 24 04/01/2024 AC OL, QL, U ethanol NEG mg/dL <10 normal Not Available [facility] [address] [place], [address], 04/01/2024 14:40:57 03/31/20 24 04/01/2024 CANNA BINOI DS, QL, U cannabinoids POS NG/mL <50 abnormal Not Available [facility] 12 [place], [address], 04/01/2024 14:41:11 03/31/20 24 04/01/2024 BUPRE NORPH INE PT UDS, QL, U cocaine metabolite NEG NG/mL <300 normal Not Available [facility] 12 [place], [address], 04/01/2024 14:41:20 03/31/20 24 04/01/2024 BUPRE NORPH INE PT UDS, QL, U amphetamines NEG NG/mL <500 normal Not Available [facility] [address] [place], [address], 04/01/2024 14:41:20 03/31/20 24 04/01/2024 BUPRE NORPH INE PT UDS, QL, U benzodiazepi patrica NEG NG/mL <200 normal Not Available [facility] [address] [place], [address], 04/01/2024 14:41:20 03/31/20 24 04/01/2024 BUPRE NORPH INE PT UDS, QL, U buprenorphin e POS NG/mL <5 normal Not Available [facility] 12 [place], [address], 04/01/2024 14:41:20 03/31/20 24 04/01/2024 BUPRE NORPH INE PT UDS, QL, U fentanyl NEG NG/mL <10 normal Not Available [facility] [address] [place], [address], 04/01/2024 14:41:20 03/31/20 24 04/01/2024 BUPRE NORPH INE PT UDS, QL, U methadone NEG NG/mL <300 normal Not Available [facility] 12 [place], [address], 04/01/2024 14:41:20 03/31/20 24 04/01/2024 BUPRE NORPH INE PT UDS, QL, U opiates NEG NG/mL <300 normal Not Available [facility] [address] [place], [address], 04/01/2024 14:41:20 03/31/20 24 04/01/2024 BUPRE NORPH INE PT UDS, QL, U oxycodone NEG NG/mL <300 normal Not Available [facility] [address] [place], [address], 04/01/2024 14:41:20 03/31/20 24 04/01/2024 BUPRE NORPH INE PT UDS, QL, U urine pH 6.4 4.5 - 9.0 Not Available [facility] 12 [place], [address], 04/01/2024 14:41:20 03/31/20 24 04/01/2024 BUPRE NORPH INE PT UDS, QL, U urine specific gravity 1.016 1.003 - 1.035 Not Available [facility] [address] [place], [address], 04/01/2024 14:41:20 03/31/20 24 04/01/2024 BUPRE NORPH INE PT UDS, QL, U urine creatinine 104 mg/dL 20 - 320 Not Available [facility] [address] [place], [address], 04/01/2024 14:41:20 03/31/20 24 04/02/2024 BUPRE NORPH INE, QN, U normalized buprenorphin e 113.2 NG/mL Not Available [facility] [address] [place], [address], 04/02/2024 10:42:22 03/31/20 24 04/02/2024 BUPRE NORPH INE, QN, U normalized norbuprenorp ang 294.4 NG/mL Not Available [facility] [address] [place], [address], 04/02/2024 10:42:22 03/31/20 24 04/02/2024 BUPRE NORPH INE, QN, U buprenorphin e 117.8 NG/mL <10.0 normal Not Available [facility] [address] [place], [address], 04/02/2024 10:42:22 03/31/20 24 04/02/2024 BUPRE NORPH INE, QN, U norbuprenorp ang 306.4 NG/mL <20.0 normal Not Available [facility] [address] [place], [address], 04/02/2024 10:42:22 04/07/20 24 04/09/2024 AC OL, QL, U ethanol NEG mg/dL <10 normal Not Available [facility] [address] [place], [address], 04/09/2024 13:49:52 04/07/20 24 04/09/2024 BUPRE NORPH INE PT UDS, QL, U cocaine metabolite NEG NG/mL <300 normal Not Available [facility] [address] [place], [address], 04/09/2024 13:49:55 04/07/20 24 04/09/2024 BUPRE NORPH INE PT UDS, QL, U amphetamines NEG NG/mL <500 normal Not Available [facility] [address] [place], [address], 04/09/2024 13:49:55 04/07/20 24 04/09/2024 BUPRE NORPH INE PT UDS, QL, U benzodiazepi patrica NEG NG/mL <200 normal Not Available [facility] 12 [place], [address], 04/09/2024 13:49:55 04/07/20 24 04/09/2024 BUPRE NORPH INE PT UDS, QL, U buprenorphin e POS NG/mL <5 normal Not Available [facility] [address] [place], [address], 04/09/2024 13:49:55 04/07/20 24 04/09/2024 BUPRE NORPH INE PT UDS, QL, U fentanyl NEG NG/mL <10 normal Not Available [facility] [address] [place], [address], 04/09/2024 13:49:55 04/07/20 24 04/09/2024 BUPRE NORPH INE PT UDS, QL, U methadone NEG NG/mL <300 normal Not Available [facility] 12 [place], [address], 04/09/2024 13:49:55 04/07/20 24 04/09/2024 BUPRE NORPH INE PT UDS, QL, U opiates NEG NG/mL <300 normal Not Available [facility] [address] [place], [address], 04/09/2024 13:49:55 04/07/20 24 04/09/2024 BUPRE NORPH INE PT UDS, QL, U oxycodone NEG NG/mL <300 normal Not Available [facility] [address] [place], [address], 04/09/2024 13:49:55 04/07/20 24 04/09/2024 BUPRE NORPH INE PT UDS, QL, U urine pH 7.1 4.5 - 9.0 Not Available [facility] [address] [place], [address], 04/09/2024 13:49:55 04/07/20 24 04/09/2024 BUPRE NORPH INE PT UDS, QL, U urine specific gravity 1.024 1.003 - 1.035 Not Available [facility] [address] [place], [address], 04/09/2024 13:49:55 04/07/20 24 04/09/2024 BUPRE NORPH INE PT UDS, QL, U urine creatinine 127 mg/dL 20 - 320 Not Available [facility] [address] [place], [address], 04/09/2024 13:49:55 04/07/20 24 04/09/2024 CANNA BINOI DS, QL, U cannabinoids POS NG/mL <50 abnormal Not Available [facility] 12 [place], [address], 04/09/2024 13:50:43 04/07/20 24 04/10/2024 BUPRE NORPH INE, QN, U normalized buprenorphin e 186.5 NG/mL Not Available [facility] [address] [place], [address], 04/10/2024 09:29:56 04/07/20 24 04/10/2024 BUPRE NORPH INE, QN, U normalized norbuprenorp ang 363.9 NG/mL Not Available [facility] [address] [place], [address], 04/10/2024 09:29:56 04/07/20 24 04/10/2024 BUPRE NORPH INE, QN, U buprenorphin e 237.6 NG/mL <10.0 normal Not Available [facility] [address] [place], [address], 04/10/2024 09:29:56 04/07/20 24 04/10/2024 BUPRE NORPH INE, QN, U norbuprenorp ang 463.6 NG/mL <20.0 normal Not Available [facility] [address] [place], [address], 04/10/2024 09:29:56 Result Notes None recorded. Problems Name Problem SNOMED Code Status Onset Date Resolution Date Notes Provider Name and Address Organization Details Recorded Time Crohn's disease 61378315 Active 2023 Karina Patel RN [address] [place], [place] [address], [address], [facility] [place] 4 15:42:05 Attention deficit hyperactivity disorder 361946112 Active 2023 Karina Patel RN [address] [facility] [place], [address], [facility] [place] 4 15:42:15 Obsessive-comp ulsive disorder 951452406 Active 2023 Sayra Ruvalcaba NP [address] [facility] [place], [address], [facility] [place] 4 13:55:40 Chronic depression 185403735 Active 2023 Sayra Ruvalcaba, IRVIN [address] [place] [address], [place], [address], [facility] 4 13:55:50 Opioid dependence 00267466 Active 2021 Palak Hinson NP [address] [facility] [place], [address], [facility] 2 13:27:59 Nicotine dependence 25479021 Active 2021 Palak Hinson NP [address] [facility] [place], [address], [facility] 2 13:28:25 Cocaine dependence 30069556 Active 2021 Palak Hinson NP [address] [facility] [place], [address], [facility] 13:28:41 Problem Notes None recorded. Procedures Surgical History Date Name Laterality Status Provider Name and Address Organization Details Recorded Time 04/14/2024 28172, G0480, G0481 cancelled Karina Patel RN [address] [place] [address], [phone], [facility] 04/13/2024 08:42:32 04/07/2024 16104, G0480, G0481 completed Karina Patel RN [address] [place] [address], [address], [facility] 04/02/2024 09:16:22 03/31/2024 68747, G0480, G0481 completed Karina Patel RN [address] [place] [address], [address], [facility] 03/30/2024 08:28:30 03/24/2024 28398, G0480, G0481 completed Karina Patel RN [address] [place] [address], [phone], [facility] 03/23/2024 09:04:08 03/17/2024 79357, G0480, G0481 completed Karina Patel RN [address] [place] [address], [address], [facility] 03/16/2024 08:02:59 01/22/2022 86277, G0480, G0481 completed Plaak Sravan, [employer] [address] [place], [address], [facility] 01/21/2022 19:03:46 01/15/2022 23920, G0480, G0481 completed Palak Sravan, [employer]AMP[employer] OFFICER [address] [place], [address], [facility] 01/15/2022 13:55:15 01/08/2022 99090, G0480, G0481 completed Palak Sravan, [employer]AMP[employer] OFFICER [address] [place], [address], [facility] 01/08/2022 12:02:10 01/01/2022 10116, G0480, G0481 completed Palak Sravan, [employer]AMP[employer] OFFICER [address] [place], [address], [facility] 01/01/2022 10:42:09 12/25/2021 24710, G0480, G0481 completed [address] null, [facility] 12/25/2021 12:47:14 12/18/2021 35330, G0480, G0481 completed [address] null, [facility] 12/18/2021 13:50:17 12/11/2021 99937, G0480, G0481 completed Leslie Hernandes null, [facility] 12/11/2021 10:23:57 Imaging Results None recorded. Procedure Notes None recorded. Medical Equipment None Reported. Allergies No known drug allergies Medications Name Sig Start Date Stop Date Status Note LastModified by Organization Details LastModified Time bupropion HCl SR 150 mg tablet,12 hr sustained- release TAKE 1 TABLET BY MOUTH DAILY FOR 3 DAYS. THEN INCREASE TO TAKE 1 TABLET BY MOUTH 2 TIMES DAILY 03/17 completed Not Available Not Available Not Available clonidine HCl 0.1 mg tablet 03/17 completed Not Available Not Available Not Available amoxicilli n 500 mg tablet TAKE 2 TABLETS BY MOUTH STAT THEN 1 TABLET THREE TIMES DAILY 03/17 completed Not Available Not Available Not Available nicotine (polacrile x) 4 mg gum 03/17 completed Not Available Not Available Not Available dicyclomin e 20 mg tablet TAKE 2 TABLETS BY MOUTH TWICE DAILY active Not Available Not Available No t Available gabapentin 300 mg capsule TAKE 1 CAPSULE BY MOUTH THREE TIMES DAILY 03/17 completed Not Available Not Available Not Available hydroxyzin e HCl 25 mg tablet 03/17 completed Not Available Not Available Not Available gabapentin 100 mg capsule Take 1 capsule twice a day by oral route. active Not Available Not Available No t Available nicotine 7 mg/24 hr daily transderma l patch 03/17 completed Not Available Not Available Not Available atomoxetin e 40 mg capsule 03/17 completed Not Available Not Available Not Available bupropion HCl XL 300 mg 24 hr tablet, extended release TAKE ONE TABLET BY MOUTH EVERY DAY 03/17 completed Not Available Not Available Not Available methylphen idate LA 20 mg biphasic 50-50 capsule,ex tended release TAKE 1 CAPSULE BY MOUTH EVERY MORNING 03/17 completed Not Available Not Available Not Available methylphen idate LA 40 mg biphasic 50-50 capsule,ex tended release TAKE 1 CAPSULE BY MOUTH IN THE MORNING 03/17 completed Not Available Not Available Not Available Focalin XR 10 mg capsule,ex tended release TAKE ONE CAPSULE BY MOUTH TWICE A DAY 03/17 completed Not Available Not Available Not Available Ritalin 40 mg in the morning and 20mg in afternoon active Total dose of 60mg daily Not Available Not Available Not Available Focalin XR 30 mg capsule,ex tended release TAKE ONE CAPSULE BY MOUTH EVERY MORNING 03/17 completed Not Available Not Available Not Available Suboxone 8 mg-[address] FILMS UNDER THE TONGUE ONCE DAILY 03/23 completed Not Available Not Available Not Available Suboxone 2 mg-0.[address] 1 film every day by sublingua l route. 03/23 completed Not Available Not Available Not Available Suboxone 12 mg-[address] 2 films every day by sublingua l route for 7 days. 2023 active Not Available Not Available Not Avai lable Vitals Date Recorded Body weight Body temperature Oxygen saturation Oxygen saturation in Arterial blood by Pulse oximetry Heart rate Systolic blood pressure Diastolic blood pressure Provider Name and Address Organization Details Last Updated DateTime 2 80916.8 5 g 96.2 [degF] 97 % 97 % 123 /min 140 mm[Hg] 80 mm[Hg] Sherie Gonzales [place] [facility] 2 11:24:21 Date Recorded Body temperature Heart rate Oxygen saturation Oxygen saturation in Arterial blood by Pulse oximetry Body weight Systolic blood pressure Diastolic blood pressure Provider Name and Address Organization Details Last Updated DateTime 4 98.1 [degF] 103 /min 98 % 98 % 88361.4 g 136 mm[Hg] 84 mm[Hg] [facility] 4 13:38:35 Date Recorded Body temperature Oxygen saturation Oxygen saturation in Arterial blood by Pulse oximetry Heart rate Systolic blood pressure Diastolic blood pressure Provider Name and Address Organization Details Last Updated DateTime 4 97.5 [degF] 98 % 98 % 115 /min 135 mm[Hg] 84 mm[Hg] [facility] 4 13:29:25 Date Recorded Body temperature Oxygen saturation Oxygen saturation in Arterial blood by Pulse oximetry Heart rate Systolic blood pressure Diastolic blood pressure Provider Name and Address Organization Details Last Updated DateTime 4 97.4 [degF] 98 % 98 % 112 /min 140 mm[Hg] 80 mm[Hg] [facility] 4 14:03:18 Date Recorded Body temperature Oxygen saturation Oxygen saturation in Arterial blood by Pulse oximetry Heart rate Systolic blood pressure Diastolic blood pressure Provider Name and Address Organization Details Last Updated DateTime 4 97.3 [degF] 97 % 97 % 108 /min 144 mm[Hg] 90 mm[Hg] Kelly Schmid [place] [facility] 4 15:02:37 Social History Question Answer Notes LastModified by Organization Details LastModified Time Tobacco Smoking Status Current Every Day Smoker Karina Patel RN [address] [place] [address], [phone], [facility] 03/17/2024 13:29:20 What Is Your Level Of Alcohol Consumption? None Information not available 03/17/2024 Are You Blind Or Do You Have Difficulty Seeing? No Information not available 03/17/2024 Are You Currently Employed? No Information not available 03/17/2024 Are You Deaf Or Do You Have Serious Difficulty Hearing? No Information not available 03/17/2024 Where Do You Live? Other Corrections Housing Information not available 03/17/2024 *Housing Stable - Safe 03/17/24: [address] (1 Minute Walk From The Office) Information not available 03/17/2024 *Employment Underemployed Looking For Employement Once Meds Get straightened Out Information not available 03/17/2024 *Food Inadequate 03/17/24: [facility] Sent Application To Marc To Provide To Pt In-person Information not available 03/17/2024 *[place] Not A [place] Information not available 03/17/2024 *Job Training/Educa tion/Literacy Patient Declined Information not available 03/17/2024 *Legal Status Probation/Parol e 03/17/24 Luz Marina. SUPERVISING OFFICER MOISÉS ARGUETA SUPERVISING OFFICE [facility] Probation And [place] Information not available 03/17/2024 *Legal Assistance Not Required Information not available 03/17/2024 *Custody Of Dependent Children N/A No Kids. Information not available 03/17/2024 *Social Service's Involvement With Dependent Children Not Applicable Information not available 03/17/2024 *Childcare Needed No Information not available 03/17/2024 *Concern For Domestic Violence No Information not available 03/17/2024 *Primary Care Provider No Providing [facility] Int Med Info For PCP And Pysch Med Information not available 03/17/2024 *Transportatio n Issues No 03/17/24: Can Walk To The Office And Has Someone Available Through His Housing That Assists With Transportation And Is Aware Of [facility] Resources. Information not available 03/17/2024 What Is Your Relationship Status? Unknown Information not available 03/17/2024 At What Age Did You Start Smoking Tobacco? 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 Information not available 03/17/2024 How Much Tobacco Do You Smoke? 0.5 PPD Information not available 03/17/2024 Do You Feel Stressed (tense, Restless, Nervous, Or Anxious, Or Unable To Sleep At Night)? [id number] Information not available 03/17/2024 Do You Use Any Illicit Or Recreational Drugs? No Last Use At Least 2 Years. Reports History Of MJ And Cocaine Use Information not available 03/17/2024 Do You Or Have You Ever Used Any Other Forms Of Tobacco Or Nicotine? No Information not available 03/17/2024 Sex: Male Functional Status Question Answer Note LastModified by Organizat ion Details LastModified Time Are you able to walk? YESWOREST Information not available 03/17/2024 Are you able to care for yourself? Yes Information not available 03/17/2024 What is your exercise level? Occasional Information not available 03/17/2024 Mental Status Question Answer Note LastModified by Organization D etails LastModified Time Do you have difficulty concentrating, remembering or making decisions? No Information no t available 03/17/2024 Family History Nothing Reported. Medical History Condition Response Gout N Thyroid Disease N Blood Diseases N Kidney Stones N Hyperthyroidism N Motor Vehicle Accident N Lung Disease N Hypothyroidism N Defects or Inherited Disease N Sexually Transmitted Infection (Disease) N Difficulty Swallowing N Prescribed Psychiatric Medication Y Muscle, Joint, or Bone Problems N Obesity N Cancer N Stroke N Varicosities N Traumatic Brain Injury N Bladder or Kidney Problems N High Cholesterol N Liver Disease N Psychiatric/Mental Health Condition Y Fibromyalgia N Headaches N Kidney Disease N Allergies/Hayfever N Heart Problems N Ear or Hearing Problems N Thyroid Problems N ADD/ADHD Y Skin Problems N Eating Disorder N Hepatitis C N MRSA exposure N COVID-19 N Diabetes N Seizures/Epilepsy N Tuberculosis N AIDS/HIV N Reflux/GERD N Stomach/Intestinal Problems Y Heart Disease N Pulmonary Embolism N Hypertension N Trauma: Physical, Emotional, Sexual, etc . N Osteoporosis N Thrombophilias N Past Encounters Encounter ID Performer Location Encounter Start Date Encounter Closed Date Diagnosis/Indication Diagnosis SNOMED-CT Code Diagnosis ICD10 Code [id number] Palak Sravan, CAMPUS SAFETY OFFICER [facility] [address] [facility] [place] [address] 12/11/2021 10:21:42 12/11/2021 11:27:23 Opioid dependence 35210087 F11.20 Cocaine dependence 30145 009 F14.20 Nicotine dependence 5629 4008 F17.200 [id number] Chioma Pereira RN [facility] [address] [place] [address] 12/11/2021 11:26:51 12/11/2021 15:11:57 [id number] Palak Sravan, CAMPUS SAFETY OFFICER [facility] [address] [place] [address] 12/18/2021 13:48:58 12/18/2021 14:22:26 Opioid dependence 33215404 F11.20 Cocaine dependence 46326 009 F14.20 Nicotine dependence 5629 4008 F17.200 [id number] Palak Bonillaklund, CAMPUS SAFETY OFFICER [facility] [place] [address] 12/25/2021 12:53:13 12/25/2021 13:17:50 Opioid dependence 36099655 F11.20 Cocaine dependence 56125 009 F14.20 Nicotine dependence 5629 4008 F17.200 [id number] Palak Hinson, CAMPUS SAFETY OFFICER [facility] [address] 01/01/2022 12:46:49 01/01/2022 14:48:15 Opioid dependence 69186171 F11.20 Cocaine dependence 39645 009 F14.20 Nicotine dependence 5629 4008 F17.200 [id number] Palak Bonillaklund, CAMPUS SAFETY OFFICER [facility] [address] [place] [address] 01/08/2022 12:32:41 01/08/2022 13:11:42 Opioid dependence 01568460 F11.20 Cocaine dependence 35269 009 F14.20 Nicotine dependence 5629 4008 F17.200 [id number] Palak Bonillaklund, CAMPUS SAFETY OFFICER [facility] [address] 01/15/2022 13:58:25 01/15/2022 14:04:58 Opioid dependence 54408517 F11.20 Cocaine dependence 44598 009 F14.20 Nicotine dependence 5629 4008 F17.200 [id number] Palak Bonillaklund, CAMPUS SAFETY OFFICER [facility] [address] [facility] [place] [address] 01/22/2022 11:15:03 01/22/2022 11:26:55 Opioid dependence 78641137 F11.20 Cocaine dependence 95830 009 F14.20 Nicotine dependence 5629 4008 F17.753 [id number] Sayra Ruvalcaba, CAMPUS SAFETY OFFICER [facility] [address] [facility] [address] [place] [address] 03/17/2024 13:10:36 03/17/2024 14:36:59 Opioid dependence 01370752 F11.20 [id number] MARGO Dan [facility] [address] [facility] [address] [place] [address] 03/17/2024 13:12:10 03/17/2024 15:21:54 [id number] Kairna Patel RN [facility] [address] [facility] [address] [place] [address] 03/17/2024 14:10:22 03/17/2024 14:25:16 [id number] ARIEL Handley [facility] [address] [facility] [address] [place] [address] 03/24/2024 13:22:49 03/24/2024 13:55:27 Opioid dependence 35937970 F11.20 [id number] MARGO Dan [facility] [address] [facility] [address] [place] [address] 03/24/2024 14:56:30 03/25/2024 03:55:47 [id number] Laura Chappell NP [facility] [address] [facility] [address] [place] [address] 03/31/2024 13:59:05 03/31/2024 14:41:16 Opioid dependence 58646323 F11.20 [id number] Laura Chappell NP [facility] [address] [facility] [address] [facility] [place] [address] 04/07/2024 14:59:52 04/07/2024 15:30:28 Opioid dependence 23651534 F11.20 Goals Section Goal Description Status Start Date LastModified by Organization Details LastModified Time Quality of Life Reports satisfaction with quality of life Goal not achieved 024 Karina Billado Information not available 03/17/2024 18:26:53 Exercise Regularly Follows a regular exercise regimen or instructed exercise plan as per care team recommendation( s) Goal not achieved 024 Karina Billado Information not available 03/17/2024 18:26:53 Adequate Sleep Achieves adequate, well-rested sleep with minimal disruption Goal not achieved 024 Karina Billado Information not available 03/17/2024 18:26:53 Family and Social Support Reports family and/or social support needs are met Goal not achieved 024 Karina Billado Information not available 03/17/2024 18:26:53 Diet Adherence Follows prescribed or recommended diet Goal not achieved 024 Karina Billado Information not available 03/17/2024 18:26:53 Effective Coping Manages life events with effective coping methods Goal not achieved 024 Karina Billado Information not available 03/17/2024 18:26:53 Medication Regimen Follows medication regimen as per care team recommendation( s) Goal not achieved 024 Karina Billado Information not available 03/17/2024 18:26:53 Recreational Activities Participates in recreational activities Goal not achieved 024 Karina Billado Information not available 03/17/2024 18:26:53 Adequate Housing Conditions Maintains adequate housing with satisfactory living conditions Goal not achieved 024 Karina Billado Information not available 03/17/2024 18:26:53 Follow-up Appointment(s) Attends referral and/or follow-up appointment(s) as per care team recommendation( s) Goal not achieved 024 Karina Billado Information not available 03/17/2024 18:26:53 Activities of Daily Living Performs activities of daily living independently or with minimal assistance Goal not achieved 024 Karina Billado Information not available 03/17/2024 18:26:53 Substance Abstinence Abstain from substance use Goal not achieved 024 Karina Billado Information not available 03/17/2024 18:26:53 Knowledge of Disease or Condition Demonstrates understanding of disease(s) or condition(s) Goal not achieved 024 Karina Billado Information not available 03/17/2024 18:26:53 Smoking Cessation Quits smoking Goal not achieved 024 Karina Billado Information not available 03/17/2024 18:27:12 Health Concerns Section Related Observation LastModified by Organization Detai ls LastModified Time Not Available Not Available Not Available Concern Status LastModified by Organization Details LastModified Time Nicotine dependence Active Karina Billado Not Availabl e 03/17/2024 18:27:04 Opioid dependence Active Karina Billado Not Available 03/17/2024 18:27:22 Advance Directives Directive None Recorded Payers Encounter Date Sequence Insurance Name Policy Number Policy [place] Covered Member ID [place] Member ID Guarantor Name 01/22/2022 1 [employer] ([employer]ICA[employer]) Avery Alstonco [id number] Avery Alstonco 03/17/2024 1 [employer] ([employer]ICA[employer]) Avery Beal Ashok [id number] Avery Ashok 03/24/2024 1 [employer] ([employer]ICA[employer]) Avery P Ashok [id number] Avery Ashok 03/31/2024 1 [employer] ([employer]ICA[employer]) Avery P Ashok [id number] Avery Ashok 04/07/2024 1 [employer] ([employer]ICA[employer]) Avery P Ashok [id number] Avery Lewis Notes Date Note Type Note Provider Name and Address Organization Details Recorded Time 01/22/2022 text/html HPI Notes: This patient is here today for their follow-up MAT visit. They are being treated for OUD with buprenorphine. PLEASE SEE A & P SECTION FOR FULL VISIT NOTE Palak Hinson NP [address] [place] [address], [phone], [facility] [place] 01/22/2022 13:52:16 03/17/2024 text/html HPI Notes: This patient is here for their Re-Initial visit. They are seeking treatment for OUD with buprenorphine Patient was last seen on 01/22/2022 PLEASE SEE A & P SECTION FOR FULL VISIT NOTE Sayra Ruvalcaba NP [address] [place], [address], [facility] 03/17/2024 14:03:24 03/24/2024 text/html HPI Notes: This patient is here today for their follow-up MAT visit. They are being treated for OUD with buprenorphine. PLEASE SEE A & P SECTION FOR FULL VISIT NOTE ARIEL Handley [address] [place], [address], [facility] 03/24/2024 13:45:59 03/31/2024 text/html HPI Notes: This patient is here today for their follow-up MAT visit. They are being treated for OUD with buprenorphine. PLEASE SEE A & P SECTION FOR FULL VISIT NOTE Laura Chappell NP [address] [place], [address], [facility] 03/31/2024 14:37:26 04/07/2024 text/html HPI Notes: This patient is here today for their follow-up MAT visit. They are being treated for OUD with buprenorphine. PLEASE SEE A & P SECTION FOR FULL VISIT NOTE Laura Chappell NP [address] [place], [address], [facility] 04/07/2024 15:29:06
[2024-07-12 16:25] LABS: ALT 33 U/L (16-63); AST 43 U/L (15-37); Albumin 3.4 g/dL (3.4-5.0); Alkaline Phosphatase 72 U/L (46-116); BUN 14 mg/dL (7-18); C-Reactive Protein 10.09 mg/dL (<or=0.5); Calcium 9.3 mg/dL (8.5-10.1); Chloride 102 mmol/L (98-107); Estimated GFR 97.58 (mL/min/1.73m2); Glucose 95 mg/dL (74-106); Magnesium 1.9 mg/dL (1.8-2.4); Potassium 4.1 mmol/L (3.5-5.1); Sodium 140 mmol/L (136-145); TSH (W/Ref FT4) 1.12 uIU/mL (0.36-3.74)
[2024-07-12] MEDS: Omnipaque 350 MG/ML 100 ML BTL IJ (16:27)
[2024-07-12] MEDS: Normal Saline - Diluent 50 ML VIAL IJ (16:30)
[2024-07-12 16:37] LABS: Procalcitonin 0.2 ng/mL
[2024-07-12] MEDS: methylPREDNISolone SUCC 40 MG VIAL IVP (16:41)
[2024-07-12] MEDS: diphenhydrAMINE 50 MG/ML VIAL IVP (16:41)
--- NOTE | 2024-07-12 16:52 | ED.PROG_ITS ---
Date of service: 07/12/24 Time of Service: 16:52 Medical Decision Making I received signout on this 39-year-old male history of Crohn's multiple prior abdominal surgeries with abdominal pain. He is from a correctional facility and has been receiving outpatient antibiotics with ceftriaxone. He reportedly had a reaction to contrast 10 years ago and will receive premedication. Will follow- up following CT scan. 5 PM Mildly elevated CRP. Normal reassuring procalcitonin. Normal TSH. CBC with leukopenia anemia. No thrombocytopenia. Mildly elevated ESR. Comprehensive metabolic panel with no VALARIE. No acute electrolyte abnormalities. No hyperglycemia. No LFT abnormalities. Normal reassuring magnesium. [address] showed concern for an infected fistulous tract in his left lower quadrant. At the skin level, I am concerned for cellulitis. Will touch base with general surgery. Please see photo of patient's left lower quadrant: I spoke with Dr. Mistry and the general surgery team. He agreed graciously to accept the patient for hospitalization. No plans for surgery patient this evening will provide patient with a meal tray. I updated the patient and his guards from the correctional facility. Quality:[facility] Health Related Social Needs: 2 No Data to Display Sign Out Sign Out Data: Sign Out Comment: Patient from [facility] with a history of Crohn's and multiple prior abdominal surgeries has had left and has some erythema around the prior abdominal pain and what they felt was an abdominal wall abscess for 2 days. Has been giving ceftriaxone at the correctional center, had a low-grade fever today so sent here. He is tender in the left lower quadrant and has some erythema around prior surgical site. He advised that he had a reaction to CT contrast 10 years ago so we will be premedicated prior to CT. Disposition pending CT results. Last updated by Shahab Howard MD at 07/12/24 16:40 Discharge Plan Disposition Patient Disposition: Admit to [facility] Condition: Stable Discharge Details Clinical Impression: Left lower quadrant abdominal pain, Cellulitis of left abdominal wall Primary Care Provider: None,None ED Provider: Avery Vogt Home Meds and New Rx's Prescriptions: No Action buprenorphine-naloxone [Suboxone] 12-3 mg film 2 film sublingual DAILY Patient Comments: PLACE TWO FILMS UNDER THE TONGUE EVERY DAY FOR 7 DAYS methylphenidate HCl 20 mg capsule,ER biphasic 50-50 20 mg PO DAILY Patient Comments: TAKE ONE CAPSULE BY MOUTH EVERY DAY AT NOON gabapentin 300 mg capsule 300 mg PO BID Patient Comments: TAKE ONE CAPSULE BY MOUTH TWICE A DAY dicyclomine 20 mg tablet 20 mg PO TID Patient Comments: TAKE ONE TABLET BY MOUTH THREE TIMES A DAY NEEDED
[2024-07-12] MEDS: HYDROmorphone 2 MG/ML SYR 1 MG IVP (18:16)
[2024-07-12] MEDS: PIPERACILLIN/TAZO 3.375 GM in Normal Saline 50 ML IVPB (18:16)
[2024-07-12 18:31] LABS: Source Nasal/Nares
--- NOTE | 2024-07-12 18:54 | W.PM.HP.N ---
Date of service: 07/12/24 Time of Service: 18:54 Assessment and Plan Assessment and plan (1) Enterocutaneous fistula: Status: Acute Assessment and plan: The CT scan demonstrates a fistula arising from the colon heading towards the left lower quadrant site of inflammation. With minimal pressure, I was able to break the superficial muscle layer of skin on the left lower extremity wound, and drain out feculent material, confirming the diagnosis. Assuming this stays well-drained, it poses a little threat as a source of infection. I doubt that antibiotics will make much difference here. I also doubt that this wound will close on its own given the long tract of the fistula, in the setting of Crohn's disease in this patient. For now, I think the best option is to ensure that it is adequately drained, and observing for any signs of spreading infection or inflammation. Ultimately, he will need to be referred to colorectal specialist for definitive treatment of the enterocutaneous fistula. However, I suspect that can be managed as an outpatient in the weeks to come. History of Present Illness History of Present Illness Chief Complaint: Left flank wound Narrative: Avery is 39 years old. He has Crohns Disease. He underwent laparotomy over a decade ago, and the details of that operation are unclear to me. He says that he had a stoma created in the right lower quadrant, and had some type of surgical drain coming out through the left lower quadrant. At some point after that the stoma was reversed, and it sounds like he has done okay. In the distant past he has been on maintenance therapy for his Crohn's disease, and he tells me that he took mesalamine for a while without any effect. 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 He is currently a prisoner at [facility]. Sounds like 2 to 3 days ago he started to develop pain in the left lower quadrant, as well as some erythema in the skin. He was treated with Rocephin. It sounds like the erythema and pain increased, so he was sent to the emergency department today. His white blood cell count is just below the low end of normal, otherwise his labs are pretty unremarkable. He underwent a CT scan of the abdomen and pelvis that suggest the possibility of a fistula from the colon up to the left lower quadrant skin site. Review of Systems Constitutional Constitutional: Denies body ache(s), Denies chills, Denies difficulty sleeping, Reports fever(s), Denies poor appetite and Denies weakness Eyes Eyes: Reports system reviewed and no additional complaints, except as documented ENT Ears, Nose, Mouth, and Throat: Reports system reviewed and no additional complaints, except as documented Cardiovascular Cardiovascular: Denies chest pain and Denies dyspnea Respiratory Respiratory: Denies chest congestion, Denies cough and Denies dyspnea Gastrointestinal Gastrointestinal: Reports abdominal pain, Denies melena, Denies hematochezia and Denies change in stool character Genitourinary Genitourinary: Reports system reviewed and no additional complaints, except as documented Neurologic Neurologic: Denies weakness Hematologic/Lymphatic Hematologic/Lymphatic: Denies easy bleeding and Denies easy bruising PFSH All Active Problems (Updated 07/12/24 @ 20:46 by Tariq Mistry MD) Enterocutaneous fistula (Acute) Cellulitis of left abdominal wall (Acute) Left lower quadrant abdominal pain (Acute) Social History Smoking/Tobacco Use Status: Current every day Smoking risk assessment performed?: Yes Drug use: Never Meds Allergies and Home Medications Allergies Allergy/AdvReac Type Severity Reaction Status Date / Time No Known Allergies Allergy Unverified 07/12/24 14:58 Home Medications ?Medication ?Instructions ?Recorded ?Confirmed ?Type buprenorphine 12 mg-naloxone 3 mg 2 film sublingual DAILY 07/12/24 07/12/24 History sublingual film (Suboxone) dicyclomine 20 mg tablet 20 mg PO TID 07/12/24 07/12/24 History gabapentin 300 mg capsule 300 mg PO BID 07/12/24 07/12/24 History methylphenidate HCl 20 mg biphasic 20 mg PO DAILY 07/12/24 07/12/24 History 50-50 capsule,extended release Results Imaging Abdomen CT scan report/results: report reviewed and image reviewed CT scan - pelvis: report reviewed and image reviewed Labs 07/12/24 15:50 07/12/24 15:50 Labs: Laboratory Results - last 24 hr 07/12/24 07/12/24 15:50 18:23 WBC 4.09 L RBC 4.55 Hgb 12.2 L Hct 37.5 L MCV 82 MCH 26.8 L MCHC 32.5 RDW 14.1 Plt Count 201 MPV 9.3 Immature Gran % 0.5 Neutrophils % 74.8 Lymphocytes % 10.8 Monocytes % 12.5 Eosinophils % 1.2 Basophils % 0.2 Nucleated RBC % 0.0 Absolute Neutrophils 3.06 Absolute Lymphocytes 0.44 L Absolute Monocytes 0.51 Absolute Eosinophils 0.05 Absolute Basophils 0.01 ESR 19 H Sodium 140 Potassium 4.1 Chloride 102 Carbon Dioxide 30.0 Anion Gap 8.0 BUN 14 Creatinine 1.0 Est GFR (CKD-EPI 2020) 97.58 Glucose 95 Calcium 9.3 Magnesium 1.9 Total Bilirubin 0.40 AST 43 H ALT 33 Alkaline Phosphatase 72 C-Reactive Protein 10.09 H Total Protein 7.0 Albumin 3.4 Procalcitonin 0.2 TSH 1.12 COVID-19 Source Nasal/Nares Last Vital Signs Temp 100.1 F H 07/12/24 14:50 Pulse 91 H 07/12/24 18:31 Resp 15 07/12/24 16:15 BP 135/85 07/12/24 18:31 Pulse Ox 95 07/12/24 18:31 Time Spent Time spent with Patient: 40-54 minutes Time was spent: preparing to see the patient(eg.review tests), ordering medications,tests, procedures, indepentently interpreting results, counseling the patient and care coordination
[2024-07-12 19:05] LABS: COVID-19 PCR Negative (Negative)
--- OUTSIDE RECORDS SUMMARY | 2024-07-12 21:18 | XMS_ITS | Continuity of Care Document ---
Author Organization [facility] ter Address [address] [place] [address]- Care Team Providers Care Student Financial Aid Manager Name Role Phone Not on Staff, PCP Primary Care Physician Unavail able Encounter [facility] Date(s): 02/06/22 - 02/09/[address] [address]- Encounter Diagnosis Abdominal pain(Final) - 02/06/22 Discharge Disposition: A-D/C [facility], Long Term, or Long Term Fac Attending Physician: Mary BHAKTA, Reham Admitting Physician: Jaylan GORDON, Christiana Vega Referring Physician: Not on Staff, Referring MD Allergies, Adverse Reactions, Alerts No Known Allergies Medications Budeprion XL = 300 mg, By Mouth, Daily, 0 Refills, Maintenance, 02/08/22 15:16:00 EDT, Partial fill upon patientrequest if the prescription is for a schedule II opioid drug. Start Date: 02/08/22 Status: Ordered buprenorphine-naloxone 8 mg-2 mg sublingual film 2 film, Sublingual, Daily, dissolve under the tongue, 0 Refills, Maintenance, 02/06/22 10:55:00 EDT, Film, Partial fill upon patient request if the prescription is for a schedule II opioid drug. Start Date: 02/06/22 Status: Ordered ferrous sulfate 325 mg oral enteric coated tablet 325 mg, 1, tablet, By Mouth, Every other day, # 15 tablet, Refills 0, Tot. Refills 0, Maintenance, 02/09/22 9:45:00 EDT, Route to Pharmacy Electronically, [facility], Partial fill upon patient request if the prescription is for a schedul... Start Date: 02/09/22 Stop Date: 03/11/22 Status: Ordered Focalin XR 30 mg oral capsule, extended release 1 capsule = 30 mg, By Mouth, Daily in AM, 0 Refills, Maintenance, 02/06/22 10:54:00 EDT, ER Capsule, Partial fill upon patient request if the prescription is for a schedule II opioid drug. Start Date: 02/06/22 Status: Ordered gabapentin 300 mg oral capsule 300 mg, 1, capsule, By Mouth, 3 times a day, Refills 0, Maintenance, 02/08/22 15:16:00 EDT, Partialfill upon patient request if the prescription is for a schedule II opioid drug. Start Date: 02/08/22 Status: Ordered gabapentin 300 mg oral capsule 300 mg, Capsule, By Mouth, 02/09/22 9:00:00 EDT Start Date: 02/09/22 Stop Date: 02/09/22 Status: Completed gabapentin 300 mg oral capsule 300 mg, Capsule, By Mouth, 02/09/22 15:00:00 EDT Start Date: 02/09/22 Stop Date: 02/09/22 Status: Completed Senna 8.6 mg oral tablet 8.6 mg, 1, tablet, By Mouth, Daily at bedtime, # 30 tablet, Refills 0, Tot. Refills 0, Maintenance,02/09/22 9:45:00 EDT, Route to Pharmacy Electronically, [facility], Partial fill uponpatient request if the prescription is for a schedu... Start Date: 02/09/22 Stop Date: 03/11/22 Status: Ordered Problem List Condition Effective Dates Status Health Status Inform ant ADHD(Confirmed) Active Crohn disease(Confirmed) Active Nicotine dependence(Confirmed) Active Vital Signs Most recent to oldest [Reference Range]: 1 2 3 Height 182 cm (02/09/22 10:21 AM) 182 cm (02/09/22 8:30 AM) 182 cm (02/08/22 8:02 PM) Weight 74 kg (02/06/22 6:21 PM) Oxygen Saturation [94-100 %] 98 % (02/09/22 10:21 AM) 100 % (02/09/22 8:30 AM) 98 % (02/08/22 8:02 PM) Pulse Rate [55-90 bpm] 89 bpm (02/09/22 10:21 AM) 83 bpm (02/09/22 8:30 AM) 85 bpm (02/08/22 8:02 PM) Body Mass Index [18.5-24.99] 22.34 (02/06/22 6:21 PM) Blood Pressure [90-138/55-84 mm Hg] 117/74mm Hg (02/09/22 10:21 AM) 102/61mm Hg (02/09/22 8:30 AM) 119/77mm Hg (02/08/22 8:02 PM) Respiratory Rate [16-30 br/min] 18 br/min (02/09/22 2:12 PM) 17 br/min (02/09/22 10:21 AM) 17 br/min (02/09/22 9:40 AM) Temperature [96.8-100.4 DegF] 98.1 DegF (02/09/22 10:21 AM) 98.2 DegF (02/09/22 8:30 AM) 98.8 DegF (02/08/22 8:02 PM) Mode of Delivery (Oxygen) Room air (02/09/22 10:21 AM) Room air (02/09/22 8:30 AM) Room air (02/08/22 8:02 PM) Blood pressure sites Arm, right (02/09/22 10:21 AM) Arm, right (02/09/22 8:30 AM) Arm, right (02/08/22 8:02 PM) Temperature Route Oral (02/09/22 10:21 AM) Oral (02/09/22 8:30 AM) Oral (02/08/22 8:02 PM) Dry Weight 74 kg (02/06/22 6:21 PM)
--- NOTE | 2024-07-12 22:14 | W.PC.ACHO ---
Registration Status: Primary Language: Preferred Language: ED Information & Data Chief Complaint Abd Prob 07/12/24 16:49 Chief Complaint Abuse/Negl 07/12/24 15:07 Triage Note hx crohns with several abd 07/12/24 14:50 surgeries. weak, tachy and febrile today. 1 Gram tylenol at noon today for temp of 101f. irritated site to LLQ. abcess area is red and streaking. outlined by corrections nurse. has had augmenting and ceftriaxone. colonoscopy ~ 1 year ago showing stricture. arrives from corrections with officers. Most Recent Vital Signs Temperature 36.4 C L 07/12/24 21:21 Temperature Source Temporal Artery Scan 07/12/24 14:50 Pulse 106 H 07/12/24 21:21 Pulse Rhythm Regular 07/12/24 21:21 Pulse 102 H 07/12/24 16:15 Respiratory Rate 20 07/12/24 21:21 Respiratory Effort Normal, Non-Labored 07/12/24 21:21 Respiratory Depth Normal 07/12/24 21:21 Respiratory Pattern Normal 07/12/24 21:21 Blood Pressure 134/98 H 07/12/24 21:21 Blood Pressure Mean 94 07/12/24 18:47 Pulse Oximetry 97 07/12/24 21:21 Oxygen Delivery Method Room Air 07/12/24 21:21 Oxygen Flow Rate 0 07/12/24 21:21 Pain Level 8 07/12/24 21:21 Allergies No Known Allergies Allergy (Unverified 07/12/24 14:58) Active Medications Generic Name Dose Route Start Last Admin Trade Name Freq PRN Reason Stop Dose Admin Iohexol 100 ml 07/12/24 16:30 07/12/24 16:27 Omnipaque 350 Mg/Ml 100 Ml Btl IJ 08/11/24 23:59 100 ml DIRECTED EMMA Administration Sodium Chloride 50 ml 07/12/24 16:30 07/12/24 16:30 Normal Saline - Diluent 50 Ml Vial IJ 50 ml .FOR DI USE EMMA Administration IV IV Catheter Type [Right Saline Lock Antecubital] Diagnostics 07/12/24 07/12/24 Range/Units 18:23 15:50 WBC 4.09 L (4.4-10.8) 10^3/uL RBC 4.55 (4.36-5.78) 10^6/uL Hgb 12.2 L (13.5-17.5) g/dL Hct 37.5 L (40.0-50.0) % MCV 82 (80-95) fL MCH 26.8 L (27.0-33.0) pg MCHC 32.5 (32.0-36.0) % RDW 14.1 (11.8-14.1) % Plt Count 201 (130-400) 10^3/uL MPV 9.3 (8.0-11.0) fL Immature Gran % 0.5 % Neutrophils % 74.8 % Lymphocytes % 10.8 % Monocytes % 12.5 % Eosinophils % 1.2 % Basophils % 0.2 % Nucleated RBC % 0.0 (0.0-0.3) % Absolute Neutrophils 3.06 (1.2-6.7) 10^3/uL Absolute Lymphocytes 0.44 L (1.2-3.4) 10^3/uL Absolute Monocytes 0.51 (0.1-0.8) 10^3/uL Absolute Eosinophils 0.05 (0.0-0.7) 10^3/uL Absolute Basophils 0.01 (0.0-0.2) 10^3/uL ESR 19 H (0-15) mm/hr Sodium 140 (136-145) mmol/L Potassium 4.1 (3.5-5.1) mmol/L Chloride 102 (98-107) mmol/L Carbon Dioxide 30.0 (21.0-32.0) mmol/L Anion Gap 8.0 (3-11) mmol/L BUN 14 (7-18) mg/dL Creatinine 1.0 (0.70-1.30) mg/dL Est GFR (CKD-EPI 2020) 97.58 (mL/min/1.73m2) Glucose 95 (74-106) mg/dL Calcium 9.3 (8.5-10.1) mg/dL Magnesium 1.9 (1.8-2.4) mg/dL Total Bilirubin 0.40 (0.2-1.0) mg/dL AST 43 H (15-37) U/L ALT 33 (16-63) U/L Alkaline Phosphatase 72 (46-116) U/L C-Reactive Protein 10.09 H (<or=0.5) mg/dL Total Protein 7.0 (6.4-8.2) g/dL Albumin 3.4 (3.4-5.0) g/dL Procalcitonin 0.2 ng/mL TSH 1.12 (0.36-3.74) uIU/mL COVID-19 Source Nasal/Nares SARS-CoV-2 (PCR) Negative (Negative) 07/12/24 15:55 Blood Culture - Pending Blood 07/12/24 15:50 Blood Culture - Pending Blood Intake and Output - 24 Hour Total 07/12/24 14:37 thru 07/12/24 21:36 Intake Total 1050 Balance 1050 Weight 87.543 kg Intake: IV 1050 Other: Voiding Methods Toilet Falls Risk Assessment History of Falls No History 07/12/24 21:21 Contributing Factors No Factors 07/12/24 21:21 Ambulatory Aids Independent 07/12/24 21:21 Tubes/Lines None 07/12/24 21:21 Gait Evaluation W/no contributing factors 07/12/24 21:21 Cognition No cognitive impairment 07/12/24 21:21 Fall Total Score 10 07/12/24 21:21 Level of Risk Standard/Low Risk 07/12/24 21:21 Problems Enterocutaneous fistula (Acute) v v v v v v v v v Sending and/or Receiving Nurses: Please use comment section below to note any information pertinent to the patient hand-off not included above. Information / Comments: Pt has 2-3 day history of increasing pain and redness in LLQ. Febrile today to 101F, treated with tylenol. Pt has a diagnosis of Crohns Disease and a history of abdominal surgeries. Previously had a drain placed at the LLQ and a stoma (since reversed) in the RLQ. CT imaging shows a degree of constipation and possible partial bowel obstruction. Anticipated abx therapy and observation overnight with possible surgery in the coming days. Received NS, zosyn, solumedrol, toradol, dilaudid, benadryl in ED Report received from: Parth Miller @ [id number] on 07/12/24
[2024-07-12] MEDS: Dicyclomine 20 MG TAB PO (22:42)
[2024-07-12] MEDS: Gabapentin 300 MG CAP PO (22:42)
[2024-07-12] MEDS: Normal Saline Flush 10 ML SYR IVP ×2 (22:43→23:38)
[2024-07-12] MEDS: Acetaminophen 500 MG TAB 1000 MG PO (23:37)
[2024-07-13] MEDS: HYDROmorphone 2 MG/ML SYR IVP ×3 (01:50→13:59)
[2024-07-13] MEDS: Normal Saline Flush 10 ML SYR IVP ×3 (01:52→07:57)
[2024-07-13] MEDS: Acetaminophen 500 MG TAB 1000 MG PO ×2 (05:58→11:54)
[2024-07-13] MEDS: Ketorolac 15 MG/ML VIAL IVP ×2 (05:58→11:55)
[2024-07-13 06:50] LABS: Abs Immature Grans 0.03 10^3/uL (0.0-0.06); Absolute Basophil Count 0.01 10^3/uL (0.0-0.2); Absolute Monocyte Count 0.39 10^3/uL (0.1-0.8); Absolute Neutrophil Count 5.57 10^3/uL (1.2-6.7); Basophils % 0.2 %; HCT 37.8 % (40.0-50.0); HGB 12.4 g/dL (13.5-17.5); Immature Grans % 0.5 %; Lymphocytes % 6.3 %; MCH 27.4 pg (27.0-33.0); MCHC 32.8 % (32.0-36.0); MCV 83 fL (80-95); MPV 9.9 fL (8.0-11.0); Monocytes % 6.1 %; Neutrophils % 86.9 %; Platelet Count 238 10^3/uL (130-400); RBC 4.53 10^6/uL (4.36-5.78); RDW 13.9 % (11.8-14.1); RDW-SD 42.4 fL
[2024-07-13 07:37] VITALS: BP 120/74; PULSE 76; RESP 18; TEMP 36.4; O2SAT 98
[2024-07-13] MEDS: Psyllium PKT 1 EACH PO (07:59)
[2024-07-13] MEDS: Buprenorphine/Naloxone 12 mg/3 mg FILM 2 EACH SL (07:59)
[2024-07-13] MEDS: Gabapentin 300 MG CAP PO (07:59)
[2024-07-13] MEDS: Dicyclomine 20 MG TAB PO ×2 (08:47→13:59)
[2024-07-13] MEDS: Venlafaxine 75 MG TAB 150 MG PO (10:30)
--- NOTE | 2024-07-13 10:51 | PGE_ITS ---
Date of Service Date of service: 07/13/24 Time of Service: 10:51 Assessment and Plan Assessment and plan (1) Colocutaneous fistula: Status: Acute Assessment and plan: DC back to corrections facility. He is going to require a colostomy bag We currently do not have any Humira or infliximab in house. The medication he is supposed to be on, Rinvoq, we do not carry and it would be or Saturday until we could get this medication. Patient shows no signs of acute infection. He is tolerating a regular diet. He has no fever no white count. He has no peritoneal signs. He has had this fistula off-and-on for many years. He has chronic Crohn's for which is gone unmedicated for the last 6 to 8 months. He needs to follow-up with GI/IBD clinic at [facility] He will be discharged He is given a prescription for colostomy bags He is given a prescription for the Invoq and the rifaximin that he is supposed to be on He is given the number for the IBD clinic at [facility] that he needs to follow- up with them for further care. Greater than 90 minutes is spent doing his discharge summary, in direct patient care, ordering prescriptions/arranging postop care and reviewing his chart and medications from [facility]. (2) Left lower quadrant abdominal pain: Status: Acute (3) Cellulitis of left abdominal wall: Status: Acute (4) Depression with anxiety: Status: Acute (5) Opioid abuse: Status: Acute (6) 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: Status: Acute (7) Hx MRSA infection: (8) History of endocarditis: (9) History of hepatitis C virus infection: Subjective Subjective Interval history since last seen: Patient is a very extensive history of Crohn's disease. I did review his last note from [facility] IBD clinic. The last time he saw was back in November 2023. He has been incarcerated since that time. Upon his release in 04/03, patient refused a prescription for Rinvoq. He has been lost to follow-up until this time. Where he presented from [facility] with a recurrent sigmoid colocutaneous fistula. He has had this in the past. It healed up while he was on medication. He has subsequently been off his medication for at least the past 6 possibly 8 months. His CRP at this time is 10. Fecal calprotectin was not done during this admission. CT 07/12 IMPRESSION: 1. There is evidence of previous partial small bowel resection on the right side. Above this level there is a right-sided abdominal wall hernia which contains non edematous appearing small bowel loops. However, there is mild prominence of small bowel loops on the right side measuring up to 3 cm. Colon is not collapsed. This may represent an element of incomplete small bowel obstruction on the right side due to this hernia. 2. On the left side there is an inflammatory process above the iliac crest level which extends from the skin surface through the subcutaneous tissues an abdominal musculature with what appears to be a fistulous tract from the skin surface to the lateral wall of the sigmoid at this level. There is inflammatory type stranding in the subcutaneous soft tissues and within the pelvis at this level. This may be related to a prior port site at this level. Alternatively inflammatory bowel disease with fistula formation. There is no bowel obstruction at this level. There is no significant sigmoid diverticular disease evident. There is abundant fecal material throughout the colon consistent with element of constipation. Given the above findings I suspect inflammatory bowel disease/Crohn's disease with prior surgeries. 3. The appendix appears unremarkable. Exam Narrative Exam Narrative: L: clear Abdomen is soft. There is no redness drainage or swelling. Significant postsurgical changes noted. Stool emanating from fistula in left lower quadrant. Will have nursing apply colostomy bag. No signs of any acute intra- abdominal issues he has been tolerating a regular diet Objective Last Vital Signs Temp 36.4 C L 07/13/24 07:37 Pulse 76 07/13/24 07:37 Resp 18 07/13/24 07:37 BP 120/74 07/13/24 07:37 Pulse Ox 98 07/13/24 07:37 Laboratory Results - last 24 hr 07/12/24 07/12/24 07/13/24 15:50 18:23 05:59 WBC 4.09 L 6.40 RBC 4.55 4.53 Hgb 12.2 L 12.4 L Hct 37.5 L 37.8 L MCV 82 83 MCH 26.8 L 27.4 MCHC 32.5 32.8 RDW 14.1 13.9 Plt Count 201 238 MPV 9.3 9.9 Immature Gran % 0.5 0.5 Neutrophils % 74.8 86.9 Lymphocytes % 10.8 6.3 Monocytes % 12.5 6.1 Eosinophils % 1.2 0.0 Basophils % 0.2 0.2 Nucleated RBC % 0.0 0.0 Absolute Neutrophils 3.06 5.57 Absolute Lymphocytes 0.44 L 0.40 L Absolute Monocytes 0.51 0.39 Absolute Eosinophils 0.05 0.00 Absolute Basophils 0.01 0.01 ESR 19 H Sodium 140 Potassium 4.1 Chloride 102 Carbon Dioxide 30.0 Anion Gap 8.0 BUN 14 Creatinine 1.0 Est GFR (CKD-EPI 2020) 97.58 Glucose 95 Calcium 9.3 Magnesium 1.9 Total Bilirubin 0.40 AST 43 H ALT 33 Alkaline Phosphatase 72 C-Reactive Protein 10.09 H Total Protein 7.0 Albumin 3.4 Procalcitonin 0.2 TSH 1.12 COVID-19 Source Nasal/Nares SARS-CoV-2 (PCR) Negative Time Spent with Patient Time Spent with Patient: >50 minutes Time was spent: preparing to see the patient(eg.review tests), obtaining and/or reviewing separately otained hiistory, ordering medications,tests, procedures, referring, communicating with other health care transport nurse, indepentently interpreting results, counseling the patient, care coordination and other
[2024-07-13 15:18] VITALS: BP 124/72; PULSE 72; RESP 17; TEMP 36.4; O2SAT 98
--- NOTE | 2024-07-13 15:25 | DSE_ITS ---
Date of service: 07/13/24 Time of Service: 15:25 DS: Diagnosis Discharge Diagnosis (1) Colocutaneous fistula: Status: Acute (2) Left lower quadrant abdominal pain: Status: Acute (3) Cellulitis of left abdominal wall: Status: Acute (4) Depression with anxiety: Status: Acute (5) Opioid abuse: Status: Acute (6) 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: Status: Acute Discharge Plan Disposition Patient Disposition: [facility] Condition: Stable Discharge Details Reason For Visit: Enterocutaneous Fistula Admit Date/Time: 07/12/24 19:46 Admit Provider: Tariq Mistry Attending Provider: Tariq Mistry Primary Care Provider: None,None Home Meds and New Rx's Prescriptions: New Rinvoq 30 mg tablet extended release 24 hr 30 mg PO DAILY Qty: 30 12RF rifaximin 550 mg tablet 550 mg PO BID 14 Days Qty: 28 0RF Continued buprenorphine-naloxone [Suboxone] 12-3 mg film 2 film sublingual DAILY Patient Comments: PLACE TWO FILMS UNDER THE TONGUE EVERY DAY FOR 7 DAYS gabapentin 300 mg capsule 300 mg PO BID Patient Comments: TAKE ONE CAPSULE BY MOUTH TWICE A DAY dicyclomine 20 mg tablet 20 mg PO TID Patient Comments: TAKE ONE TABLET BY MOUTH THREE TIMES A DAY NEEDED venlafaxine 75 mg tablet 75 mg PO DAILY Discharge Instructions Additional Instructions: -You Need to f/u w/ Mike Chavis APRN at IBD clinic immediately for continued care of Crohn's [phone] -regular diet -pain meds are very constipating: if you do not move your bowels daily take a dose of OTC Miralax -It is ok to shower. No bathe, soaking, swimming or hot tubs -empty colostomy bag every 3-4 hrs -change wafer every 2-5 days - You may find that your appetite is smaller. Eat 3-6 small meals throughout the day. It is important to drink lots of water after hospitalization, 6-10 glasses a day. -If you were given an incentive spirometry (breathing college instructor?), continue to do this 10x/hour while awake. -We do want you up walking, at least 5-6 times per day. This is very important to prevent pneumonia and blood clots. You can climb stairs, take them slowly. -You may find that you are very tired - this is normal. Stand Alone Forms: Nursing Discharge Form Activity:: Activity as Tolerated Equipment/Supplies:: No Equipment Needed Diet:: As Tolerated DS: Summary Time Spent with Patient providing and/or coordinating discharge services: Greater than 30 minutes Status at Discharge Functional status at discharge: independent ambulation Overall status at discharge: patient is not back to baseline Mental Status: mental status grossly normal Speech and Movement: speech and movement normal Mood: congruent mood Affect: normal affect Quality:SDOH Health Related Social Needs: No Data to Display Exam Psych Mental Status: mental status grossly normal Speech and Movement: speech and movement normal Mood: congruent mood Affect: normal affect DS: Data Vitals/I&O Vitals and I&O: Vital Signs Temperature 36.4 C L 07/13/24 15:18 Temperature Source Skin 07/13/24 15:18 Pulse 72 07/13/24 15:18 Pulse Rhythm Regular 07/13/24 11:14 Pulse 102 H 07/12/24 16:15 Respiratory Rate 17 07/13/24 15:18 Respiratory Effort Normal, Non-Labored 07/13/24 11:14 Respiratory Depth Normal 07/13/24 11:14 Respiratory Pattern Normal 07/13/24 11:14 Blood Pressure 124/72 07/13/24 15:18 Blood Pressure Mean 94 07/12/24 18:47 Pulse Oximetry 98 07/13/24 15:18 Oxygen Delivery Method Room Air 07/13/24 15:18 Oxygen Flow Rate 0 07/13/24 15:18 Pain Level 7 07/13/24 15:18 Intake & Output 07/12/24 07/13/24 07/13/24 23:59 11:59 23:59 Intake Total 1270 / 1270 360 / 410 50 / 410 Balance 1270 / 1270 360 / 410 50 / 410 Weight 87.543 kg Intake: IV 1050 / 1050 50 / 50 Oral 220 / 220 360 / 360 Other: Comment pT stated that he has gotten up to use the bathroom. Independently to the bathroom. Voiding Methods Toilet Toilet Toilet Data Completed and Pending Labs on day of discharge: Labs from last 24 hours 07/13/24 07/12/24 07/12/24 05:59 18:23 15:50 WBC 6.40 4.09 L RBC 4.53 4.55 Hgb 12.4 L 12.2 L Hct 37.8 L 37.5 L MCV 83 82 MCH 27.4 26.8 L MCHC 32.8 32.5 RDW 13.9 14.1 Plt Count 238 201 MPV 9.9 9.3 Immature Gran % 0.5 0.5 Neutrophils % 86.9 74.8 Lymphocytes % 6.3 10.8 Monocytes % 6.1 12.5 Eosinophils % 0.0 1.2 Basophils % 0.2 0.2 Nucleated RBC % 0.0 0.0 Absolute Neutrophils 5.57 3.06 Absolute Lymphocytes 0.40 L 0.44 L Absolute Monocytes 0.39 0.51 Absolute Eosinophils 0.00 0.05 Absolute Basophils 0.01 0.01 ESR 19 H Sodium 140 Potassium 4.1 Chloride 102 Carbon Dioxide 30.0 Anion Gap 8.0 BUN 14 Creatinine 1.0 Est GFR (CKD-EPI 2020) 97.58 Glucose 95 Calcium 9.3 Magnesium 1.9 Total Bilirubin 0.40 AST 43 H ALT 33 Alkaline Phosphatase 72 C-Reactive Protein 10.09 H Total Protein 7.0 Albumin 3.4 Procalcitonin 0.2 TSH 1.12 COVID-19 Source Nasal/Nares SARS-CoV-2 (PCR) Negative 07/12/24 15:55 Blood Blood Culture - Pending 07/12/24 15:50 Blood Blood Culture - Pending Preliminary micro results at discharge 07/12/24 15:55 Blood Culture - Pending Blood 07/12/24 15:50 Blood Culture - Pending Blood PFSH All Active Problems (Updated 07/13/24 @ 10:52 by Ashlee Parsons, DO) 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 (Acute) Opioid abuse (Acute) Depression with anxiety (Acute) Colocutaneous fistula (Acute) Cellulitis of left abdominal wall (Acute) Left lower quadrant abdominal pain (Acute) Social History Smoking/Tobacco Use Status: Current every day Smoking risk assessment performed?: Yes Drug use: Never Housing: other Time Spent with Patient Time Spent with Patient: 70-84 minutes4 Time was spent: preparing to see the patient(eg.review tests), obtaining and/or reviewing separately otained hiistory, ordering medications,tests, procedures, referring, communicating with other health mall plant caretaker, indepentently interpreting results, counseling the patient, care coordination and other
--- NOTE | 2024-07-13 15:40 | W.PM.DS.N ---
Date of service: 07/13/24 Time of Service: 15:51 DS: Diagnosis Discharge Diagnosis (1) Colocutaneous fistula: Status: Acute (2) Left lower quadrant abdominal pain: Status: Acute (3) Cellulitis of left abdominal wall: Status: Acute (4) Depression with anxiety: Status: Acute (5) Opioid abuse: Status: Acute (6) 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: Status: Acute Discharge Plan Disposition Patient Disposition: [facility] Condition: Stable Discharge Details Reason For Visit: Enterocutaneous Fistula Admit Date/Time: 07/12/24 19:46 Admit Provider: Tariq Mistry Attending Provider: Tariq Mistry Primary Care Provider: None,None Hospital Course Hospital Course: See addendum Home Meds and New Rx's Prescriptions: New Rinvoq 30 mg tablet extended release 24 hr 30 mg PO DAILY Qty: 30 12RF rifaximin 550 mg tablet 550 mg PO BID 14 Days Qty: 28 0RF (DME) colostomy bag, non-sterile 4 1/3 (12) misc See Rx Instructions .Route Qty: 10 0RF Rx Instructions: As directed Continued buprenorphine-naloxone [Suboxone] 12-3 mg film 2 film sublingual DAILY Patient Comments: PLACE TWO FILMS UNDER THE TONGUE EVERY DAY FOR 7 DAYS gabapentin 300 mg capsule 300 mg PO BID Patient Comments: TAKE ONE CAPSULE BY MOUTH TWICE A DAY dicyclomine 20 mg tablet 20 mg PO TID Patient Comments: TAKE ONE TABLET BY MOUTH THREE TIMES A DAY NEEDED venlafaxine 75 mg tablet 75 mg PO DAILY Discharge Instructions Additional Instructions: -You Need to f/u w/ Mike Chavis APRN at IBD clinic immediately for continued care of Crohn's [phone] -You need to start Rinvoq immediately and follow-up with the IBD clinic at [facility] -regular diet -It is ok to shower. No bathe, soaking, swimming or hot tubs -empty colostomy bag every 3-4 hrs -change wafer every 2-5 days - You may find that your appetite is smaller. Eat 3-6 small meals throughout the day. It is important to drink lots of water after hospitalization, 6-10 glasses a day. -We do want you up walking, at least 5-6 times per day. This is very important to prevent pneumonia and blood clots. You can climb stairs, take them slowly. -You may find that you are very tired - this is normal. Stand Alone Forms: Nursing Discharge Form Activity:: Activity as Tolerated Equipment/Supplies:: No Equipment Needed Diet:: As Tolerated DS: Summary Time Spent with Patient providing and/or coordinating discharge services: Greater than 30 minutes Status at Discharge Functional status at discharge: independent ambulation Overall status at discharge: patient is not back to baseline Mental Status: mental status grossly normal Speech and Movement: speech and movement normal Mood: congruent mood Affect: normal affect Quality:SDOH Health Related Social Needs: No Data to Display Exam Psych Mental Status: mental status grossly normal Speech and Movement: speech and movement normal Mood: congruent mood Affect: normal affect DS: Data Vitals/I&O Vitals and I&O: Vital Signs Temperature 36.4 C L 07/13/24 15:18 Temperature Source Skin 07/13/24 15:18 Pulse 72 07/13/24 15:18 Pulse Rhythm Regular 07/13/24 11:14 Pulse 102 H 07/12/24 16:15 Respiratory Rate 17 07/13/24 15:18 Respiratory Effort Normal, Non-Labored 07/13/24 11:14 Respiratory Depth Normal 07/13/24 11:14 Respiratory Pattern Normal 07/13/24 11:14 Blood Pressure 124/72 07/13/24 15:18 Blood Pressure Mean 94 07/12/24 18:47 Pulse Oximetry 98 07/13/24 15:18 Oxygen Delivery Method Room Air 07/13/24 15:18 Oxygen Flow Rate 0 07/13/24 15:18 Pain Level 7 07/13/24 15:18 Intake & Output 07/12/24 07/13/24 07/13/24 23:59 11:59 23:59 Intake Total 1270 / 1270 360 / 410 50 / 410 Balance 1270 / 1270 360 / 410 50 / 410 Weight 87.543 kg Intake: IV 1050 / 1050 50 / 50 Oral 220 / 220 360 / 360 Other: Comment pT stated that he has gotten up to use the bathroom. Independently to the bathroom. Voiding Methods Toilet Toilet Toilet Data Completed and Pending Labs on day of discharge: Labs from last 24 hours 07/13/24 07/12/24 07/12/24 05:59 18:23 15:50 WBC 6.40 4.09 L RBC 4.53 4.55 Hgb 12.4 L 12.2 L Hct 37.8 L 37.5 L MCV 83 82 MCH 27.4 26.8 L MCHC 32.8 32.5 RDW 13.9 14.1 Plt Count 238 201 MPV 9.9 9.3 Immature Gran % 0.5 0.5 Neutrophils % 86.9 74.8 Lymphocytes % 6.3 10.8 Monocytes % 6.1 12.5 Eosinophils % 0.0 1.2 Basophils % 0.2 0.2 Nucleated RBC % 0.0 0.0 Absolute Neutrophils 5.57 3.06 Absolute Lymphocytes 0.40 L 0.44 L Absolute Monocytes 0.39 0.51 Absolute Eosinophils 0.00 0.05 Absolute Basophils 0.01 0.01 ESR 19 H Sodium 140 Potassium 4.1 Chloride 102 Carbon Dioxide 30.0 Anion Gap 8.0 BUN 14 Creatinine 1.0 Est GFR (CKD-EPI 2020) 97.58 Glucose 95 Calcium 9.3 Magnesium 1.9 Total Bilirubin 0.40 AST 43 H ALT 33 Alkaline Phosphatase 72 C-Reactive Protein 10.09 H Total Protein 7.0 Albumin 3.4 Procalcitonin 0.2 TSH 1.12 COVID-19 Source Nasal/Nares SARS-CoV-2 (PCR) Negative 07/12/24 15:55 Blood Blood Culture - Pending 07/12/24 15:50 Blood Blood Culture - Pending Preliminary micro results at discharge 07/12/24 15:55 Blood Culture - Pending Blood 07/12/24 15:50 Blood Culture - Pending Blood PFSH All Active Problems (Updated 07/13/24 @ 10:52 by Ashlee Parsons DO) 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 (Acute) Opioid abuse (Acute) Depression with anxiety (Acute) Colocutaneous fistula (Acute) Cellulitis of left abdominal wall (Acute) Left lower quadrant abdominal pain (Acute) Social History Smoking/Tobacco Use Status: Current every day Smoking risk assessment performed?: Yes Drug use: Never Housing: other Time Spent with Patient Time Spent with Patient: 70-84 minutes4 Time was spent: preparing to see the patient(eg.review tests), obtaining and/or reviewing separately otained hiistory, ordering medications,tests, procedures, referring, communicating with other health rn palliative care, indepentently interpreting results, counseling the patient, care coordination and other
--- NOTE | 2024-07-13 16:03 | W.PM.DS.N ---
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: Status: Acute (7) Hx MRSA infection: (8) History of endocarditis: (9) History of hepatitis C virus infection: Discharge Plan Disposition [facility] Dis[facility] Condition: Stable Discharge Details Reason For Visit: Enterocutaneous Fistula Admit Date/Time: 07/12/24 19:46 Admit Provider: Tariq Mistry Attending Provider: Tariq Mistry Primary Care Provider: None,None Hospital Course Hospital Course: See addendum Home Meds and New Rx's Prescriptions: New Rinvoq 30 mg tablet extended release 24 hr 30 mg PO DAILY Qty: 30 12RF rifaximin 550 mg tablet 550 mg PO BID 14 Days Qty: 28 0RF (DME) colostomy bag, non-sterile 4 1/3 (12) misc See Rx Instructions .Route Qty: 10 0RF Rx Instructions: As directed Continued buprenorphine-naloxone [Suboxone] 12-3 mg film 2 film sublingual DAILY Patient Comments: PLACE TWO FILMS UNDER THE TONGUE EVERY DAY FOR 7 DAYS gabapentin 300 mg capsule 300 mg PO BID Patient Comments: TAKE ONE CAPSULE BY MOUTH TWICE A DAY dicyclomine 20 mg tablet 20 mg PO TID Patient Comments: TAKE ONE TABLET BY MOUTH THREE TIMES A DAY NEEDED venlafaxine 75 mg tablet 75 mg PO DAILY Discharge Instructions Additional Instructions: -You Need to f/u w/ Mike Chavis APRN at IBD clinic immediately for continued care of Crohn's [phone] -You need to start Rinvoq immediately and follow-up with the IBD clinic at [facility] -regular diet -It is ok to shower. No bathe, soaking, swimming or hot tubs -empty colostomy bag every 3-4 hrs -change wafer every 2-5 days - You may find that your appetite is smaller. Eat 3-6 small meals throughout the day. It is important to drink lots of water after hospitalization, 6-10 glasses a day. -We do want you up walking, at least 5-6 times per day. This is very important to prevent pneumonia and blood clots. You can climb stairs, take them slowly. -You may find that you are very tired - this is normal. Stand Alone Forms: Nursing Discharge Form Referrals: None,None [Primary Care Provider] - (Please follow up with Mike Chavis APRN at : [phone]) Activity:: Activity as Tolerated Equipment/Supplies:: No Equipment Needed Diet:: As Tolerated Discharge Orders Discharge Orders: Discharge Order (Routine); Ordered 07/13/24 Ordered By: Ashlee Parsons DS: Summary Time Spent with Patient providing and/or coordinating discharge services: Greater than 30 minutes Status at Discharge Functional status at discharge: independent ambulation Overall status at discharge: patient is not back to baseline Mental Status: mental status grossly normal Speech and Movement: speech and movement normal Mood: congruent mood Affect: normal affect Quality:SDOH Health Related Social Needs: No Data to Display Exam Psych Mental Status: mental status grossly normal Speech and Movement: speech and movement normal Mood: congruent mood Affect: normal affect DS: Data Vitals/I&O Vitals and I&O: Vital Signs Temperature 36.4 C L 07/13/24 15:18 Temperature Source Skin 07/13/24 15:18 Pulse 72 07/13/24 15:18 Pulse Rhythm Regular 07/13/24 11:14 Pulse 102 H 07/12/24 16:15 Respiratory Rate 17 07/13/24 15:18 Respiratory Effort Normal, Non-Labored 07/13/24 11:14 Respiratory Depth Normal 07/13/24 11:14 Respiratory Pattern Normal 07/13/24 11:14 Blood Pressure 124/72 07/13/24 15:18 Blood Pressure Mean 94 07/12/24 18:47 Pulse Oximetry 98 07/13/24 15:18 Oxygen Delivery Method Room Air 07/13/24 15:18 Oxygen Flow Rate 0 07/13/24 15:18 Pain Level 7 07/13/24 15:18 Intake & Output 07/12/24 07/13/24 07/13/24 23:59 11:59 23:59 Intake Total 1270 / 1270 360 / 410 50 / 410 Balance 1270 / 1270 360 / 410 50 / 410 Weight 87.543 kg Intake: IV 1050 / 1050 50 / 50 Oral 220 / 220 360 / 360 Other: Comment pT stated that he has gotten up to use the bathroom. Independently to the bathroom. Voiding Methods Toilet Toilet Toilet Data Completed and Pending Labs on day of discharge: Labs from last 24 hours 07/13/24 07/12/24 07/12/24 05:59 18:23 15:50 WBC 6.40 4.09 L RBC 4.53 4.55 Hgb 12.4 L 12.2 L Hct 37.8 L 37.5 L MCV 83 82 MCH 27.4 26.8 L MCHC 32.8 32.5 RDW 13.9 14.1 Plt Count 238 201 MPV 9.9 9.3 Immature Gran % 0.5 0.5 Neutrophils % 86.9 74.8 Lymphocytes % 6.3 10.8 Monocytes % 6.1 12.5 Eosinophils % 0.0 1.2 Basophils % 0.2 0.2 Nucleated RBC % 0.0 0.0 Absolute Neutrophils 5.57 3.06 Absolute Lymphocytes 0.40 L 0.44 L Absolute Monocytes 0.39 0.51 Absolute Eosinophils 0.00 0.05 Absolute Basophils 0.01 0.01 ESR 19 H Sodium 140 Potassium 4.1 Chloride 102 Carbon Dioxide 30.0 Anion Gap 8.0 BUN 14 Creatinine 1.0 Est GFR (CKD-EPI 2020) 97.58 Glucose 95 Calcium 9.3 Magnesium 1.9 Total Bilirubin 0.40 AST 43 H ALT 33 Alkaline Phosphatase 72 C-Reactive Protein 10.09 H Total Protein 7.0 Albumin 3.4 Procalcitonin 0.2 TSH 1.12 COVID-19 Source Nasal/Nares SARS-CoV-2 (PCR) Negative 07/12/24 15:55 Blood Blood Culture - Pending 07/12/24 15:50 Blood Blood Culture - Pending Preliminary micro results at discharge 07/12/24 15:55 Blood Culture - Pending Blood 07/12/24 15:50 Blood Culture - Pending Blood PFSH All Active Problems (Updated 07/13/24 @ 16:02 by Ashlee Parsons DO) 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 (Acute) Opioid abuse (Acute) Depression with anxiety (Acute) Colocutaneous fistula (Acute) Cellulitis of left abdominal wall (Acute) Left lower quadrant abdominal pain (Acute) Medical History (Updated 07/13/24 @ 16:02 by Ashlee Parsons, ) History of hepatitis C virus infection Treated per [facility] GI Hx MRSA infection Cavitary pneumonia History of endocarditis MRSA Social History Smoking/Tobacco Use Status: Current every day Smoking risk assessment performed?: Yes Drug use: Never Housing: other Time Spent with Patient Time Spent with Patient: >85 minutes Time was spent: preparing to see the patient(eg.review tests), obtaining and/or reviewing separately otained hiistory, ordering medications,tests, procedures, referring, communicating with other health critical care rn, indepentently interpreting results, counseling the patient, care coordination and other
== END 2024-07-13 16:30 ==
LOC: ER 20:32 → MS 21:16
PROVIDERS: Emergency Medicine; Admitting Provider Surgery; Emergency Provider Emergency Medicine; Visit Provider Surgery
DX: L03.311 Cellulitis of abdominal wall; K50.813 Crohn's disease of both small and large intestine with fistula; F41.8 Other specified anxiety disorders; F11.10 Opioid abuse, uncomplicated; Z86.14 Personal history of Methicillin resistant Staphylococcus aureus infection; Z86.19 Personal history of other infectious and parasitic diseases; F17.210 Nicotine dependence, cigarettes, uncomplicated; D64.9 Anemia, unspecified; D72.819 Decreased white blood cell count, unspecified
CPT/HCPCS: 00123; 36415; 80053; 84145; 85652; 87040; 87635; 96361; 96365; 96375; 96376; 99285; 74177; 83735; 84443; 85025; 86140; G0378; J1170; J1200; J1885; J2543; J2919; J3490